=== PATIENT | female | born 1960 | race Caucasian/White ===

== ENCOUNTER 2020-03-01 08:17 | Outpatient (CLI) | payer MEDICARE, SELFPAY ==
--- NOTE | ~2020-03-01 | MM_ITS ---
EXAMINATION: MM scrn thom implant BI w derek HISTORY: Screening mammogram TECHNIQUE: Craniocaudal and mediolateral oblique 3-D tomosynthesis images with implant displacement a nd synthetic 2-D images were generated. Craniocaudal and mediolateral oblique views of the breasts wi thout implant displacement were obtained using full field digital mammography. CAD analysis was submi tted and interpreted. COMPARISON: 12/12/2018, 09/18/2017, bilateral implant digital screening mammogram examination s BREAST PARENCHYMAL COMPOSITION: There are scattered areas of fibroglandular density. FINDINGS: Status post bilateral augmentation mammoplasty. There is no evidence of suspicious mass, ca lcification, or architectural distortion to suggest malignancy in either breast. There has been no conroy spicious interval change. IMPRESSION: 1. No mammographic evidence of malignancy. 2. Recommend routine screening mammography in one year. BI-RADS Category 1: Negative Reviewed, dictated and finalized at location A.
== END 2020-03-01 08:18 | disposition home or self-care (01) ==
LOC: ANHIMG 08:19
PROVIDERS: PCP Physician Assistant; Visit Provider Physician Assistant
DX: Z12.31 Encounter for screening mammogram for malignant neoplasm of breast (principal)
CPT/HCPCS: 77063; 77067

== ENCOUNTER 2020-07-22 13:53 | Outpatient (CLI) | payer MEDICARE, SELFPAY ==
--- NOTE | ~2020-07-22 | XR_ITS ---
XR foot RT 2V DATE: 07/22/2020 15:27 INDICATION: Rheumatoid arthritis. Metatarsophalangeal pain. TECHNIQUE: Weightbearing AP and lateral views COMPARISON: None FINDINGS: There is mild osteoarthritis at the first metatarsophalangeal joint. No erosive changes are noted. No fracture, dislocation, periosteal reaction or bone destruction. Linear radiopaque foreign body overlies the soft tissues of the heel the foot. IMPRESSION: Osteoarthritis at first metatarsophalangeal joint Possible radiopaque foreign body in the soft tissues of the heel Reviewed, dictated and finalized at location B. ARY CLERK
--- NOTE | ~2020-07-22 | XR_ITS ---
XR hand BI arthritis min 3V DATE: 07/22/2020 15:27 INDICATION: Rheumatoid arthritis. The carpophalangeal pain. TECHNIQUE: 4 views of each hand COMPARISON: None FINDINGS: There is joint space narrowing and spurring at multiple joints, including the first metacar pophalangeal and multiple interphalangeal joints, particularly distal interphalangeal joints of the s econd and third digits and proximal and distal interphalangeal joints of the right fifth digit, consi stent with polyarticular osteoarthritis. No erosive changes are noted. No fracture, dislocation, periosteal reaction or bone destruction. IMPRESSION: Polyarticular osteoarthritis Reviewed, dictated and finalized at location B. RMATION SYSTEMS AUDIT MANAGER
--- NOTE | ~2020-07-22 | XR_ITS ---
XR lumbar spine min 4V DATE: 07/22/2020 15:27 INDICATION: Back pain. Rheumatoid arthritis. TECHNIQUE: AP, lateral, coned lateral lumbosacral and bilateral oblique views COMPARISON: 05/17/2016 MRI lumbar spine 11/13/2003 lumbar spine FINDINGS: There is degenerative spurring of the lower thoracic spine. There is moderately severe degenerative disc disease at L1-2. There is mild degenerative disease at L2-3. There is mild degenerative disc disease and minimal retrolisthesis at L3-4. There is minimal spurring at L4-5, with preservation of intervertebral disc space. The L5-S1 disc space is well preserved. There is minimal grade 1 anterolisthesis at L4-5 due to degenerative change at the apophyseal joints. Degenerative changes apophyseal joints is noted particularly at L4-5 and L5-S1. No fracture or bone destruction of the lumbar spine. The lumbar pedicles are intact. No spondylolysis . The sacral iliac joints are intact. IMPRESSION: Degenerative changes lower thoracic and lumbar spine Reviewed, dictated and finalized at location B. ICATION DESIGNER
--- NOTE | ~2020-07-22 | XR_ITS ---
XR foot LT 2V DATE: 07/22/2020 15:27 INDICATION: Rheumatoid arthritis TECHNIQUE: Weightbearing AP and lateral views COMPARISON: None FINDINGS: There is mild osteoarthritis at the first metatarsophalangeal joint. No fracture, dislocation, periosteal reaction or bone destruction is evident. No erosive changes are noted. IMPRESSION: Mild osteoarthritis at the first metatarsophalangeal joint Reviewed, dictated and finalized at location B. TLE BUGGY OPERATOR
--- NOTE | ~2020-07-22 | XR_ITS ---
XR hip BI 2V w AP pelvis DATE: 07/22/2020 15:27 INDICATION: Pelvic and bilateral hip pain. Rheumatoid arthritis. TECHNIQUE: AP pelvis. AP and lateral views of each hip. COMPARISON: None FINDINGS: No pelvic fracture or bone destruction is evident. The pubic sepsis and sacroiliac joints a re intact but there is mild osteitis pubis. No fracture or dislocation, avascular necrosis or bone destruction of either hip is detected. Hip nyasia nt spaces are symmetric and relatively preserved. IMPRESSION: Mild osteitis pubis Reviewed, dictated and finalized at location B. GER GAME IMPRESSION: Mild osteitis pubis
[2020-07-22 14:22] LABS: Hematocrit 34.4 % (37.0-47.0); Hemoglobin 11.4 g/dL (12.0-15.0); Mean Corpuscular HGB Conc 33.1 g/dl (32-36); Mean Corpuscular Hemoglobin 29.8 pg (26-34); Mean Corpuscular Volume 90.1 fl (80-100); Platelet Count Result 235 k/mm3 (150-375); Red Blood Count 3.82 M/mm3 (4.2-5.4); Red Cell Distribution Width 12.5 % (11.5-14.5); White Blood Count 7.7 K/mm3 (4.5-10.0)
[2020-07-22 14:37] LABS: Alanine Aminotransferase 17 U/L (4-35); Albumin Level 3.8 g/dL (3.5-5.1); Alkaline Phosphatase 61 U/L (38-126); Anion Gap 7 mmol/L (8-16); Aspartate Amino Transferase 34 U/L (14-36); Bilirubin,Total 0.4 mg/dL (0.2-1.3); Blood Urea Nitrogen 21 mg/dL (7-17); CRP 1.1 mg/dL (<1.0); Calcium 9.3 mg/dL (8.4-10.2); Carbon Dioxide 31 mmol/L (22-30); Chloride 100 mmol/L (98-107); Estimated Glomerular Filt Rate > 60; Glucose 111 mg/dL (65-105); Potassium 4.3 mmol/L (3.4-5.0); Sodium 138 mmol/L (137-145)
[2020-07-22 14:43] LABS: Add Urine Microscopic? YES; Appearance Urine Clear (Clear); Bilirubin Urine Negative (Negative); Blood Urine Negative (Negative); Color Urine Yellow (Yellow); Glucose Urine UA Negative (Negative); Ketones Urine Negative (Negative); Leukocyte Esterase Ur Negative LEU/UL (Negative); Mucus Urine Rare /lpf; Nitrate Urine Negative (Negative); Protein Urine 1+ mg/dL (Negative); Squamous Epithelial Cell Urine Rare /hpf (Few); Urobilinogen Urine Negative mg/dL (<2.0); WBC Urine 0-3 /hpf
[2020-07-22 14:50] LABS: Specific Grav Ur 1.033 (1.001-1.035)
[2020-07-22 15:32] LABS: Erythrocyte Sedimentation Rate 19 mm/hr (0-20)
== END 2020-07-22 13:54 | disposition home or self-care (01) ==
LOC: ANHLAB 13:57
PROVIDERS: PCP Physician Assistant; Visit Provider Internal Medicine
DX: M06.09 Rheumatoid arthritis without rheumatoid factor, multiple sites (principal); M19.90 Unspecified osteoarthritis, unspecified site; M19.072 Primary osteoarthritis, left ankle and foot; M19.071 Primary osteoarthritis, right ankle and foot; M86.8X8 Other osteomyelitis, other site; M19.042 Primary osteoarthritis, left hand; M19.041 Primary osteoarthritis, right hand
CPT/HCPCS: 36415; 72110; 73130; 73521; 73620; 80053; 81001; 85027; 85652; 86140

== ENCOUNTER 2021-03-03 09:34 | Outpatient (CLI) | payer MEDICARE, SELFPAY ==
--- NOTE | ~2021-03-03 | MM_ITS ---
EXAMINATION: MM scrn thom implant BI w derek HISTORY: Screening mammogram TECHNIQUE: Craniocaudal and mediolateral oblique 3-D tomosynthesis images with implant displacement a nd synthetic 2-D images were generated. Craniocaudal and mediolateral oblique views of the breasts wi thout implant displacement were obtained using full field digital mammography. CAD analysis was submi tted and interpreted. COMPARISON: 03/01/2020, 12/12/2018, 09/18/2017 BREAST PARENCHYMAL COMPOSITION: There are scattered areas of fibroglandular density. FINDINGS: There is no evidence of suspicious mass, calcification, or architectural distortion to sugg est malignancy in either breast. There has been no suspicious interval change. IMPRESSION: 1. No mammographic evidence of malignancy. 2. Recommend routine screening mammography in one year. BI-RADS Category 1: Negative Reviewed, dictated and finalized at location A.
== END 2021-03-03 09:35 | disposition home or self-care (01) ==
LOC: ANHIMG 09:35
PROVIDERS: PCP Physician Assistant; Visit Provider Physician Assistant
DX: Z12.31 Encounter for screening mammogram for malignant neoplasm of breast (principal)
CPT/HCPCS: 77063; 77067

== ENCOUNTER 2021-06-13 10:00 | Outpatient (RCR) | payer MEDICARE, SELFPAY ==
--- NOTE | 2021-05-23 16:22 | PTOPEVAL ---
Thank you for referring Yandy Callejas to [facility].? The patient is scheduled to be seen for therapy? 1-2 x/week for 6 weeks. Please review, sign, date and return this plan of care BISI. I agree with and certify that the following plan of care is medically necessary. Referring Physician Date Referring Provider: Lorrie Kiser PA-C Problem Diagnosis neck pain Onset chronic Additional Evaluation Detail She had therapy 3 yrs ago and 4 yrs ago. Subjective Information Reports she has had 4 cervical Query Text:As Reported By Patient/ fusion surgeries. Family She c/o muscle weakness. c/o left shoulder/scapular pain. She states she feels like she is trying to put something in place again. She is lifting 5# weights for UE training. She is performing stretching to help align the muscle and joints. She has popping of joints with stretching. She c/ o leg pain with steps and increased walking. She works as long as she can if her pain is lower, then won't be able to do things for days. c/o numbness and tingling of right UE. She wears a lift in her shoes due to leg length difference. She has a massager and TENS unit for managing her chronic pain. She has fibromyaglia which will cause full body pain and fatigue. Pain Assessment Neck Reported Pain Level 6 Pain Description Aching,Burning,Numbness, Radiating,Tightness,Tingling Pain Radiation Right Arm Pain Frequency Chronic,Continuous Lowest Pain Intensity 1 Greatest Pain Intensity 8 Pain Aggravating Factors Exercise/Activity Cervical and Lumbar ROM Cervical ROM Cervical Flexion (0-60) 40:Active in Degrees Cervical Extension (0-70) 60:Active in Degrees Cervical Lateral Flexion Right (0-50) 30Active in Degrees Cervical Lateral Flexion Left (0-50) 30:Active in Degrees Cervical Rotation Right (0-90) 50:Active in Degrees Cervical Rotation Left (0-90) 35:Active in Degrees Cervical ROM Comments pain with
--- NOTE | 2021-06-06 09:08 | PCPTNOTE ---
Patient did not show up for scheduled appointment this date. Called & patient stated she looked at the wrong date & had her time wrong.
--- NOTE | 2021-06-08 11:15 | PCPTNOTE ---
Patient did not show up for scheduled appointment this date. Called & spoke to patient and she stated sorry, I just forgot with the holiday coming up.
--- NOTE | 2021-06-15 10:09 | PCPTNOTE ---
Patient called & cancelled scheduled appointment this date due to not feeling well.
--- NOTE | 2021-06-20 13:48 | PCPTNOTE ---
Patient called & cancelled scheduled appointment this date due to still being sick.
--- NOTE | 2021-06-21 15:39 | PCPTNOTE ---
Pt called to cancel her remaining visits due to unable to attend therapy due to personal conflicts.
--- NOTE | 2021-06-21 15:40 | PCPTNOTE ---
Admitting Provider: Attending Provider: Lorrie Kiser PA-C Patient:Yandy Callejas Date of :1960 Physical Therapy Discharge Note Patient has not returned for any further treatments since 06/13/2021, therefore she will be discharged at this time. She called to cancel her remaining visits due to conflict in her schedule. Patient?s initial visit was on 05/23/2021 12:30 and she had a total of 4 visits with 4 missed visits. The goals have been not met due to limited visits attended. Thank you for referring this patient to [facility]. Please review, sign, date and return this discharge summary BISI. I have been updated about the patient's current status and I agree with discharge from the above service at this time. Referring Physician Date
== END 2021-06-22 17:14 | disposition home or self-care (01) ==
LOC: ANHPT 10:00
PROVIDERS: PCP Physician Assistant
DX: M54.2 Cervicalgia (principal); M54.6 Pain in thoracic spine; M54.50 Low back pain, unspecified; M96.1 Postlaminectomy syndrome, not elsewhere classified
CPT/HCPCS: 97110; 97140; 97162

== ENCOUNTER 2021-09-30 11:02 | Outpatient (CLI) | payer MEDICARE, SELFPAY ==
--- NOTE | ~2021-09-30 | XR_ITS ---
EXAMINATION: XR soft tissue neck DATE: 09/30/2021 11:32 INDICATION: Chronic dysphagia. TECHNIQUE: 2 views of the neck soft tissues were obtained. COMPARISON: None. FINDINGS: The adenoids, palatine tonsils, prevertebral soft tissues, epiglottis, and airway are forest l. There are changes of anterior fusion procedure from C3 to C7. There are changes of posterior fusio n procedure at C6-C7. IMPRESSION: 1. Normal neck soft tissues. Reviewed, dictated and finalized at location A.
--- NOTE | ~2021-09-30 | XR_ITS ---
EXAMINATION: XR chest 2V DATE: 09/30/2021 11:32 INDICATION: Chronic cough. Chronic dysphagia. TECHNIQUE: Frontal and lateral views of the chest were obtained. COMPARISON: Chest 2 views 04/26/2018 FINDINGS: There is mild scarring at right lung apex. A calcified left lung nodule and calcified left hilar and mediastinal lymph nodes are consistent with old granulomatous disease. There is chronic adri nting of left posterior costophrenic angle, likely scarring. No pleural effusion or pneumothorax. The heart size is normal. Breast implants are noted. There are changes of anterior fusion procedure in c ervical spine. IMPRESSION: 1. Mild scarring at right lung apex and left lung base. Reviewed, dictated and finalized at location A.
== END 2021-09-30 11:03 | disposition home or self-care (01) ==
LOC: ANHIMG 11:08
PROVIDERS: PCP Physician Assistant; Visit Provider Physician Assistant
DX: R13.11 Dysphagia, oral phase (principal); R05.3 Chronic cough
CPT/HCPCS: 70360; 71046

== ENCOUNTER 2021-11-20 16:09 | Emergency (ER) | payer MEDICARE, SELFPAY | END 2021-11-20 17:20 | disposition left against medical advice (07) | PROVIDERS: Emergency Provider Family Medicine; PCP Physician Assistant | DX: R52 Pain, unspecified (principal) | CPT/HCPCS: 99199 ==

== ENCOUNTER 2022-01-25 10:19 | Day surgery (SDC) | payer MEDICARE, SELFPAY ==
[2022-01-12 13:06] VITALS: BMI 21.7
--- NOTE | 2022-01-24 12:01 | PM.HPGS ---
History of Present Illness History of Present Illness Consent: Risks, benefits, and alternatives have been discussed and questions answered. Patient agrees to proceed with procedure. Chief complaint: dysphagia and neoplasm screening Narrative: Yandy Callejas is a 61 year old female ? whostates that every time she eats she will choke.? It at times makes it feel like she cannot breathe.? She states she had a swallow test that was normal a couple of years ago.? She is taking famotidine once a day and finds that it is somewhat helpful.? She was not aware of the fact that she had acid reflux but agrees that this medication has been of some benefit.? Unfortunately, even coming in to my office she states she had some hard candy and it caused her to cough.? She has had extensive surgery on her neck, she has had? cervical fusion 4 times and is fused from C2-C7.? She thinks that the symptoms actually? began before her 1st operation after which the neuro surgeon told her that there had been a spur that may have been impinging on her esophagus.? ? Her weight is stable.? Two years ago barium esophagogram was unremarkable . She is also referred for colon cancer screening. Review of Systems Review of Systems: All systems reviewed & are unremarkable except as noted in HPI and below PMFSH Past Medical History Medical History Arthritis Bilateral hand pain Cervical spine arthritis with nerve pain (~10/2018) Degenerative joint disease of cervical and lumbar spine (~1998) Rheumatoid arthritis involving both hands with negative rheumatoid factor (10/14/16) Steel plate in left arm Surgical History Surgical History H/O cervical spine surgery History of carpal tunnel release Family History Family History Other Family history of arthritis Social History Social History Smoking status: Never smoker Alcohol intake: current Living arrangements: with family Spiritual care concerns: No Meds Home Medications and Allergies Home Medications Medication Instructions Recorded Confirmed Type hydrocodone 10 mg-acetaminophen 1 tablet PO BID PRN Back Pain 05/16/19 01/25/22 History 325 mg tablet levothyroxine 25 mcg capsule 25 mcg PO DAILY 07/28/20 01/25/22 History amitriptyline 25 mg tablet 25 mg PO DAILY #90 tabs 08/09/21 01/25/22 Rx hydroxychloroquine 200 mg tablet 300 mg PO DAILY #135 tabs 08/09/21 01/25/22 Rx (Plaquenil) tizanidine 2 mg tablet 2 mg PO TID PRN muscle spasticity 08/09/21 01/25/22 Rx #90 tabs diclofenac sodium 1 % topical gel 2 g topical QID PRN joint pain 01/12/22 01/25/22 History famotidine 20 mg tablet 20 tablet PO DAILY 01/12/22 01/25/22 History Allergies Allergy/AdvReac Type Severity Reaction Status Date / Time NSAIDS (Non-Steroidal Allergy Unknown Rash Verified 01/25/22 10:47 Anti-Inflamma Exam Const: General: alert Orientation/consciousness: patient oriented x3 Resp: Auscultation: clear to auscultation bilaterally Cardio: Rhythm: regular rhythm GI: GI Palp: Yes Soft to palpation and No Tenderness to palpation present (GI) Neuro: General: patient oriented x3 Assessment and Plan Assessment and plan (1) Dysphagia: Code(s): R13.10 - Dysphagia, unspecified Status: Acute Assessment and Plan: EGD with possible biopsy or dilatation or cautery. (2) Colon cancer screening: Code(s): Z12.11 - Encounter for screening for malignant neoplasm of colon Status: Acute Assessment and Plan: Colonoscopy with possible biopsy or polypectomy or cautery or injection of substances.
--- NOTE | 2022-01-24 13:25 | P.PNAN_ITS ---
Anes - Initial Pre Proc Eval Procedure: Operation Date: 01/25/22 12:00 Proposed Procedures p Esophagogastroduodenoscopy - Prakash Jewell MD s Screening Colonoscopy - Prakash Jewell MD Date/Time: 01/24/22 13:25 Surgeon: Prakash Jewell MD Pre Op Diagnosis: dysphagia and neoplasm screening Patient Data Age: 61 Gender: F Height: 1.66 m Weight: 60 kg Allergies Allergy/AdvReac Type Severity Reaction Status Date / Time NSAIDS (Non-Steroidal Allergy Unknown Rash Verified 01/25/22 10:47 Anti-Inflamma Home Medications Medication Instructions Recorded Confirmed Type hydrocodone 10 mg-acetaminophen 1 tablet PO BID PRN Back Pain 05/16/19 01/25/22 History 325 mg tablet levothyroxine 25 mcg capsule 25 mcg PO DAILY 07/28/20 01/25/22 History amitriptyline 25 mg tablet 25 mg PO DAILY #90 tabs 08/09/21 01/25/22 Rx hydroxychloroquine 200 mg tablet 300 mg PO DAILY #135 tabs 08/09/21 01/25/22 Rx (Plaquenil) tizanidine 2 mg tablet 2 mg PO TID PRN muscle spasticity 08/09/21 01/25/22 Rx #90 tabs diclofenac sodium 1 % topical gel 2 g topical QID PRN joint pain 01/12/22 01/25/22 History famotidine 20 mg tablet 20 tablet PO DAILY 01/12/22 01/25/22 History Patient hx anesthesia problems: none Family hx anesthesia problems: none Results Review: All pre-operative results and documents have been reviewed as part of the pre- operative evaluation. [facility] [place] Past Medical History Medical History Arthritis Bilateral hand pain Cervical spine arthritis with nerve pain (~10/2018) Degenerative joint disease of cervical and lumbar spine (~1998) Rheumatoid arthritis involving both hands with negative rheumatoid factor (10/14/16) Steel plate in left arm Surgical History Surgical History H/O cervical spine surgery History of carpal tunnel release Family History Family History (System 12/15/21 @ 16:19 by Bree Lopez) Other Family history of arthritis Social History Social History (System 12/15/21 @ 16:19 by Bree Lopez) Smoking status: Never smoker Alcohol intake: current Living arrangements: with family Spiritual care concerns: No Anes - Eval Final PreProcedure Day of Procedure 01/24/22 13:25 Patient weight: normal Heart: regular rate and rhythm Lungs: clear to auscultation Airway: Mallampati scale class II Neurological: alert and oriented Last oral intake: >/= 8 hours ASA classification: II Emergent: no Anesthetic plan: proceed Anesthesia type and monitoring: general GIVS and standard monitoring Results Review: All pre-operative results and documents have been reviewed as part of the pre- operative evaluation. Informed Consent: The patient's anesthetic plan and its attendant risks and benefits were discussed with the patient/family/POA. Questions were solicited and answers provided to the satisfaction of the patient/family/POA.
[2022-01-25 10:52] VITALS: BP 101/82; PULSE 104; RESP 18; TEMP 37.4; O2SAT 99; BMI 21.4
[2022-01-25] MEDS: LACTATED RINGERS 1,000 ML 30 ML IV CONT (11:10)
--- NOTE | 2022-01-25 12:23 | SUR.OPER ---
Balloon dilation done 18-20 to esophagus
[2022-01-25 12:29] VITALS: BP 87/66; PULSE 96; RESP 20; TEMP 37.2; O2SAT 100
[2022-01-25 12:39] VITALS: BP 94/76; PULSE 94; RESP 20; O2SAT 100
[2022-01-25 12:49] VITALS: BP 98/68; PULSE 95; RESP 20; O2SAT 100
--- NOTE | 2022-02-15 07:41 | WPDANESPN ---
Anes - Prog Note Post-Op Date/Time: 01/25/22 14:00 Cardiovascular status: normal Respiratory status: normal Airway patency: baseline Mental status: baseline Post-Op hydration status: normal Vital Signs: Last Vital Signs Temp 37.2 C 01/25/22 12:29 Pulse 95 01/25/22 12:49 Resp 20 01/25/22 12:49 BP 98/68 L 01/25/22 12:49 Pulse Ox 100 01/25/22 12:49 O2 Del Method Room Air 01/25/22 12:49 Pain Score (VAS): 0 Post-procedural complaints: none Patient Feedback: Patient satisfied with anesthetic care. Other Findings: Patient vital signs back to baseline. Patient denies nausea and vomiting. Patient's pain under control. Patient OK for discharge.
== END 2022-01-25 12:58 | disposition home or self-care (01) ==
PROVIDERS: PCP Physician Assistant; Visit Provider Internal Medicine Gastroenterology
PROC: 0DP08DZ Removal of Intraluminal Device from Upper Intestinal Tract, Via Natural or Artificial Opening Endoscopic (ICD-10-PCS; CPT 43247; principal; 2022-01-25 12:00)
PROC: 0DJD8ZZ Inspection of Lower Intestinal Tract, Via Natural or Artificial Opening Endoscopic (ICD-10-PCS; CPT 45378; 2022-01-25 12:00)
DX: R13.10 Dysphagia, unspecified (principal); Z12.11 Encounter for screening for malignant neoplasm of colon
CPT/HCPCS: 45378; 43249; 43239

== ENCOUNTER 2022-04-11 14:37 | Outpatient (CLI) | payer MEDICARE, MEDICAID, SELFPAY ==
--- NOTE | ~2022-04-11 | MM_ITS ---
EXAMINATION: MM scrn thom implant BI w derek HISTORY: Screening mammogram TECHNIQUE: Craniocaudal and mediolateral oblique 3-D tomosynthesis images with implant displacement a nd synthetic 2-D images were generated. Craniocaudal and mediolateral oblique views of the breasts wi thout implant displacement were obtained using full field digital mammography. CAD analysis was submi tted and interpreted. COMPARISON: 03/03/2021, 03/01/2020, 12/12/2018 bilateral implant screening mammogram examinations BREAST PARENCHYMAL COMPOSITION: The breasts are heterogeneously dense, which may obscure small masses . FINDINGS: Status post bilateral augmentation mammoplasty. There is no evidence of suspicious mass, ca lcification, or architectural distortion to suggest malignancy in either breast. There has been no conroy spicious interval change. IMPRESSION: 1. No mammographic evidence of malignancy. 2. Recommend routine screening mammography in one year. BI-RADS Category 1: Negative Reviewed, dictated and finalized at location A.
== END 2022-04-11 14:38 | disposition home or self-care (01) ==
PROVIDERS: PCP Physician Assistant; Visit Provider Physician Assistant
DX: Z12.31 Encounter for screening mammogram for malignant neoplasm of breast (principal)
CPT/HCPCS: 77063; 77067

== ENCOUNTER 2023-02-06 09:51 | Outpatient (CLI) | payer MEDICARE, MEDICAID, SELFPAY ==
--- NOTE | ~2023-02-06 | DEXA_ITS ---
Bone Density Report Name: DANAE CRUMP Age: 62 Sex: Female Ethnicity: White Date of : 1960 Indication: postmenopausal; screening for osteoporosis; hysterectomy; rheumatoid arthritis; Referring Provider: HARIS, LORRIE Thomson Study: Bone densitometry was performed. Exam Date: February 06, 2023 Accession number: [id number] Bone Density: Region BMD T-score Z-score Classification AP Spine(L1, L2) 1.024 0.4 1.9 Normal Femoral Neck (Left) 0.519 -3.0 -1.6 Osteoporosis Total Hip (Left) 0.668 -2.2 -1.2 Osteopenia Femoral Neck (Right) 0.553 -2.7 -1.3 Osteoporosis Total Hip (Right) 0.687 -2.1 -1.0 Osteopenia Total Hip Mean 0.678 -2.2 -1.1 Osteopenia World Health Organization criteria for BMD impression classify patients as: Normal (T-score at or above -1.0), Osteopenia (T-score between -1.0 and -2.5), or Osteoporosis (T-score at or below -2.5). 10-year Fracture Risk: FRAX not reported because: Some T-score for Spine Total or Hip Total or Femoral Neck at or below -2.5 Clinical Information Provided by Patient: Has rheumatoid arthritis Has used the following medications: Vitamin D, Calcium Has the following medical conditions: Hysterectomy Patient maximum height was 65.5 Menopause Age: 24 Drinks caffeinated beverages Onset of menses at age 12 Number of children 1 Impression: The patient has osteoporosis, based on the Left Femoral Neck T-score. Discussion: INCREASED RISK OF FRACTURE. BONE DENSITY IS UNDESIRABLY LOW AT ONE OR MORE SKELETAL SITES, CONSISTENT WITH POSTMENOPAUSAL OSTEOPOROSIS. This patient's lowest T-score meets the World Health Organization's (WHO) criteria for osteoporosis at one or more sites (T-score -2.5 or below). In untreated patients, the risk of osteoporotic fracture increases approximately two-fold for each 1.0 SD decrease in T-score. Low bone density is not the only risk factor for fracture; also consider factors such as patient's age, frailty or poor health, risk of falling, risk of injury, previous osteoporotic fracture, family history of osteoporosis, cigarette smoking, low body weight, etc. Not everyone with low bone mineral density has osteoporosis; osteomalacia and other metabolic bone disorders should also be considered. Patients who have osteoporosis should be evaluated for specific diseases and conditions (secondary causes) that may cause or contribute to bone loss. The [place] [employer] Endocrinologists (AACE) and National Osteoporosis Foundation (NOF) recommend pharmacologic intervention for all postmenopausal women whose T-score is in this range. The patient should follow a healthful lifestyle (good nutrition with adequate calcium and vitamin D, and appropriate weight-bearing exercise). Follow-Up: Consider a repeat BMD and Vertebral Fracture Asses
== END 2023-02-06 09:52 | disposition home or self-care (01) ==
PROVIDERS: PCP Physician Assistant; Visit Provider Physician Assistant
DX: Z13.820 Encounter for screening for osteoporosis (principal); M81.0 Age-related osteoporosis without current pathological fracture; Z78.0 Asymptomatic menopausal state
CPT/HCPCS: 77080

== ENCOUNTER 2023-08-01 09:00 | Outpatient (CLI) | payer MEDICARE, MEDICAID, SELFPAY ==
--- NOTE | ~2023-08-01 | MM_ITS ---
EXAMINATION: MM scrn tohm implant BI w derek HISTORY: Screening mammogram TECHNIQUE: Craniocaudal and mediolateral oblique 3-D tomosynthesis images with implant displacement a nd synthetic 2-D images were generated. Craniocaudal and mediolateral oblique views of the breasts wi thout implant displacement were obtained using full field digital mammography. CAD analysis was submi tted and interpreted. COMPARISON: Comparison to multiple prior studies sequentially, with oldest reviewed study dated 08/28. BREAST PARENCHYMAL COMPOSITION: There are scattered areas of fibroglandular density. FINDINGS: There is no evidence of suspicious mass, calcification, or architectural distortion to sugg est malignancy in either breast. There has been no suspicious interval change. IMPRESSION: 1. No mammographic evidence of malignancy. 2. Recommend routine screening mammography in one year. BI-RADS Category 1: Negative Reviewed, dictated and finalized at location A. OPERATIONS MANAGER
== END 2023-08-01 09:01 | disposition home or self-care (01) ==
LOC: ANHIMG 09:02
PROVIDERS: PCP Physician Assistant; Visit Provider Physician Assistant
DX: Z12.31 Encounter for screening mammogram for malignant neoplasm of breast (principal)
CPT/HCPCS: 77063; 77067

== ENCOUNTER 2024-09-29 08:52 | Outpatient (CLI) | payer MEDICARE, MEDICAID, SELFPAY ==
--- NOTE | ~2024-09-29 | MM_ITS ---
EXAMINATION: MM scrn thom implant BI w derek HISTORY: Screening mammogram TECHNIQUE: Craniocaudal and mediolateral oblique 3-D tomosynthesis images with implant displacement a nd synthetic 2-D images were generated. Craniocaudal and mediolateral oblique views of the breasts wi thout implant displacement were obtained using full field digital mammography. CAD analysis was submi tted and interpreted. COMPARISON: Comparison to multiple prior studies sequentially, with oldest reviewed study dated 12/2017. BREAST PARENCHYMAL COMPOSITION: Not dense: There are scattered areas of fibroglandular density. FINDINGS: There is no evidence of suspicious mass, calcification, or architectural distortion to sugg est malignancy in either breast. There has been no suspicious interval change. IMPRESSION: 1. No mammographic evidence of malignancy. 2. Recommend routine screening mammography in one year. BI-RADS Category 1: Negative Reviewed, dictated and finalized at location B.
--- OUTSIDE RECORDS SUMMARY | 2024-09-29 09:35 | XMS_ITS | Continuity of Care Document ---
Author Organization [facility] Address [address] [place] [address] [address] [place] [address] Phone Care Team Providers Care Air Filler Name Role Phone Munoz OD, Javier Unavailable Unavailable Procedures Procedure Date Eye Exam, New Patient Advance Directives Directive Yes / No Effective Date File Name No Information Encounters Encounter Description Practice Location Reason(s) For Visit Diagnoses Date Provider Providers Copied on Encounter Located within [facility], [address], [place], [place], [id number], [place] tel:[phone] SEC [facility] No Information 1-200 9 Munoz OD Ajvier. [address] [facility] , [address], [place], [address], [place]. tel:[phone] Family History Family Member Type Diagnosis Age At Onset No Information Payers Payer name Insurance type Covered green party ID Authoriza tion(s) No Information Social History Type Description Quantity Date Captured Comments Sex Female Smoking Status No Information Chief Complaint And Reason For Visit No Information Reason For Referral Reason For Referral No Information History Of Present Illness Encounter Date Complaint History Of Prese nt Illness No Information Functional Status Date Functional Assessmen t No Information Instructions Date Instruction Additional Infor mation No Information Assessments Type Assessment Date No Information Patient Care Teams Name Effective Dates (start - stop) Status Members No Information
--- OUTSIDE RECORDS SUMMARY | 2024-09-29 09:35 | XMS_ITS | Clinical Summary ---
Author Organization [facility] [address] Address [address] [place] [address] Care Team Providers Care Crystallographer Name Role Phone Ted Moon DO Primary Care Provider [phone] Allergies Active Allergy Reactions Criticality Noted Date Comments Naproxen Hives Reaction: HIVES Social History Tobacco Use Types Packs/Day Years Used Date Smoking Tobacco: Never Assessed Personal Safety Answer Date Recorded Getting School Help Needed Not on file 09/28 Comments Unknown Sex and Gender Information Value Date Recorded Sex Assigned at Not on file Legal Sex Female 1:11 PM SMOKING PIPE DRILLER AND THREADER Gender Identity Not on file Sexual Orientation Not on file Last Filed Vital Signs Vital Sign Reading Time Taken Comments Blood Pressure 100/54 04/14/2014 9:02 AM CDT Pulse 68 04/14/2014 9:02 AM CDT Temperature - - Respiratory Rate - - Oxygen Saturation - - Inhaled Oxygen Concentration - - Weight 64 kg (141 lb) 04/13/2014 11:00 AM CDT Height 167.6 cm (5' 5.98 ) 04/13/2014 11:00 AM C DT Body Mass Index 22.77 04/13/2014 11:00 AM CDT Plan of Treatment Not on file Insurance MEDICARE SOLUTIONS MEDICARE SOLUTIONS [id number] [id number] Care Teams Crystallographer Relationship Specialty Start Date End Date Ted Moon DO PCP - General Internal Medicine 12/25/16
--- OUTSIDE RECORDS SUMMARY | 2024-09-29 09:35 | XMS_ITS | Clinical Summary ---
Author Organization [facility] [employer] Address [address] [place] [address] Care Team Providers Care Wafer Abrading Machine Tender Name Role Phone Unavailable Primary Care Provider Unavailabl e Source Comments [facility] [employer],non-owned Affiliates and Associated Physician Practices is amultiple site organization consisting of ambulatory clinics and hospital sitesin [place], [place], [place] and [place]. This disclosure is being madepursuant to the Care Everywhere program and may not contain all information available regarding this patient. Last updated 18.[facility] [employer] Social History Tobacco Use Types Packs/Day Years Used Date Smoking Tobacco: Never Assessed Sex and Gender Information Value Date Recorded Sex Assigned at Not on file Gender Identity Not on file Sexual Orientation Not on file Plan of Treatment Health Maintenance Due Date Last Done Comments COLOGUARD (AGES 45-75) - COL ON CA SCREENING 1960 COLON MONITORING 1960 COLONOSCOPY - COLON CA SCREENING 1960 CT COLONOGRAPHY - COLON CA SCREENING 1960 Colorectal Cancer Screening 1960 FIT - COLON CA SCREENING 1960 FLEX SIG - COLON CA SCREENING 1960 LIPID TESTING 1960 MAMMOGRAM 1960 PAP SMEAR 1960 HIV SCREENING 10/30/1975 HEPATITIS C SCREENING 10/25/1978 DTAP/TDAP/TD VACCINES (1 - Tdap) 10/30/1979 PNEUMOCOCCAL VACCINE 50+ (1 of 1 - PCV) 2010 ZOSTER VACCINE (1 of 2) 2010 COVID-19 VACCINE (1 - 2023-2 5 season) 2024 INFLUENZA VACCINE (#1) 2024 DEPRESSION SCREENING 07/16/2024 Respiratory Syncytial Virus (RSV) Vaccine Pt: or over 60 yrs (1 - 1-dose 75+ series) 10/30/2035 HEPATITIS B VACCINE Aged Out No longe r eligible based on patient's age to complete this topic HIB VACCINE Aged Out No longer eligi ble based on patient's age to complete this topic HPV VACCINE Aged Out No longer eligi ble based on patient's age to complete this topic MENINGOCOCCAL (Group B) VACC INE SHARED DECISION-MAKING Aged Out No longer eligibl e based on patient's age to complete this topic MENINGOCOCCAL GROUPS A/C/Y/W VACCINE Aged Out No longer eligible b ased on patient's age to complete this topic PNEUMOCOCCAL VACCINE Aged Out No long er eligible based on patient's age to complete this topic
--- OUTSIDE RECORDS SUMMARY | 2024-09-29 09:35 | XMS_ITS | Encounter Summary ---
Author Organization [facility] Address [facility] [place] [address] Care Team Providers Care Handhole Machine Operator Name Role Phone Debra Minor Primary Care Provider [phone] Segundo Kennedy MD Unavailable [phone] [facility] Primary Care Provider + Encounter Details Date Type Department Care Team (Late st Contact Info) Description 03/24/2021 Pressflip Message Enc [facility] Medical Group Family & Internal Medicine [address] [address] [facility] Medication & lab work Social History Tobacco Use Types Packs/Day Years Used Date Smoking Tobacco: Former Cigarettes Smokeless Tobacco: Never Comments:Quit 11 years ago Alcohol Use Standard Drinks/Week Comments Never 0 (1 standard drink = 0.6 oz pur e alcohol) AUDIT-C Answer Date Recorded Q1: How often do you have a drink containing alc ohol? Never 01/13/2020 Average Number of Drinks Not on file 020 Frequency of Binge Drinking Not on file 12/16 PHQ-2 Answer Date Recorded PHQ-2 Score - If the patient scores above 3, please move on to questions 3-9 0 01/19/2021 Comments No Sex and Gender Information Value Date Recorded Sex Assigned at Not on file Legal Sex Female 1:05 PM CDT Gender Identity Female 08/15/2021 4:38 AM JIG MAKER Sexual Orientation Straight 08/30/2021 7: 32 AM JIG MAKER documented as of this encounter Plan of Treatment Upcoming Encounters Date Type Department Care Team (Late st Contact Info) Description 09/30/2024 9:30 AM CDT Appointment [facility] One Day Services [address] [place] [address] Danitza Gutierrez FNP-BC [address], [address] [place] [address] documented as of this encounter Visit Diagnoses Not on filedocumented in this encounter Additional Health Concerns Assessment Noted Time PHQ-9 Depression Total Score: 0 01/20/20 9:06 AM CDT documented as of this encounter Care Teams Handhole Machine Operator Relationship Specialty [place] [address] [place] [address] PCP - General PHYSICIAN SCRAP DEALER 01/13/20 04/19/23 Danitza Gutierrez FNP-BC [address], [address] [place] [address] PCP - General Nurse Practitioner Family 04/20/23 [place] [address] [address] , [address] [id number] ANESTHESIOLOGY 10/03/21 documented as of this encounter
--- OUTSIDE RECORDS SUMMARY | 2024-09-29 09:35 | XMS_ITS | Encounter Summary ---
Author Organization [facility] Address [facility] [place] [address] Care Team Providers Care Electroneurodiagnostic Technologist Name Role Phone Segundo Kennedy MD Unavailable [phone] Danitza Gutierrez [facility] Primary Care Provider + Encounter Details Date Type Department Care Team (Late st Contact Info) Description 05/12/2024 [employer] Message [employer] [facility] Medical Group Internal Medicine [address] [address] [facility] Provider Colorectal cancer screening Social History Tobacco Use Types Packs/Day Years Used Date Smoking Tobacco: Former Cigarettes 0.5 20 1 - 2009 Passive Smoke Exposure: Past Smokeless Tobacco: Never Alcohol Use Standard Drinks/Week Comments Yes 0 (1 standard drink = 0.6 oz pur e alcohol) rare AUDIT-C Answer Date Recorded Q1: How often do you have a drink containing alc ohol? Never 01/13/2020 Average Number of Drinks Not on file 020 Frequency of Binge Drinking Not on file 12/16 PHQ-2 Answer Date Recorded Patient Health Questionnaire-2 Score 0 01/14/2024 Comments No Sex and Gender Information Value Date Recorded Sex Assigned at Not on file Legal Sex Female 1:05 PM CDT Gender Identity Female 08/15/2021 4:38 AM PREMIUM NOTE INTEREST CALCULATOR CLERK Sexual Orientation Straight 08/30/2021 7: 32 AM PREMIUM NOTE INTEREST CALCULATOR CLERK documented as of this encounter Plan of Treatment Upcoming Encounters Date Type Department Care Team (Late st Contact Info) Description 09/30/2024 9:30 AM CDT Appointment [facility] [address] [place] [address] Danitza Gutierrez FNP- [address], [address] [place] [address] documented as of this encounter Visit Diagnoses Not on filedocumented in this encounter Additional Health Concerns Assessment Noted Time PHQ-9 Depression Total Score: 0 10/04/19 22 3:55 PM CDT documented as of this encounter Care Teams Electroneurodiagnostic Technologist Relationship Specialty Start Date End Date Danitza Gutierrez FNP-MAREN [address], [address] [place] [address] PCP - General Nurse Practitioner Family 04/20/23 [place] [address] [address] , [address] [address] ANESTHESIOLOGY 10/03/21 documented as of this encounter
--- OUTSIDE RECORDS SUMMARY | 2024-09-29 09:35 | XMS_ITS | Encounter Summary ---
Author Organization [facility] Address [facility] [place] [address] Care Team Providers Care Nut Tapper Name Role Phone Debra Minor Primary Care Provider [phone] Segundo Kennedy MD Unavailable [phone] Danitza Gutierrez [facility] Primary Care Provider + Encounter Details Date Type Department Care Team (Late st Contact Info) Description 04/18/2022 [employer] Message Enc [facility] Medical Group Family & Internal Medicine [address] [address] Gutierrez [facility] Provider Mammogram result Social History Tobacco Use Types Packs/Day Years Used Date Smoking Tobacco: Former Cigarettes Smokeless Tobacco: Never Comments:Quit 11 years ago Alcohol Use Standard Drinks/Week Comments Never 0 (1 standard drink = 0.6 oz pur e alcohol) non smoker AUDIT-C Answer Date Recorded Q1: How often do you have a drink containing alc ohol? Never 01/13/2020 Average Number of Drinks Not on file 020 Frequency of Binge Drinking Not on file 12/16 PHQ-2 Answer Date Recorded PHQ-2 Score - If the patient scores above 3, please move on to questions 3-9 0 01/03/2022 Comments No Sex and Gender Information Value Date Recorded Sex Assigned at Not on file Legal Sex Female 1:05 PM CDT Gender Identity Female 08/15/2021 4:38 AM LAB SCIENTIST Sexual Orientation Straight 08/30/2021 7: 32 AM LAB SCIENTIST documented as of this encounter Plan of Treatment Upcoming Encounters Date Type Department Care Team (Late st Contact Info) Description 09/30/2024 9:30 AM CDT Appointment [facility] One Day Services [address] [place] [address] Danitza Gutierrez FNP-BC [address] [address], [address] [place] [address] documented as of this encounter Visit Diagnoses Not on filedocumented in this encounter Additional Health Concerns Assessment Noted Time PHQ-9 Depression Total Score: 0 10/04/19 3:55 PM CDT documented as of this encounter Care Teams Nut Tapper Relationship Specialty [place] [address] [place] [address] PCP - General PHYSICIAN INSPECTOR METAL FABRICATING 01/13/20 04/19/23 Danitza Gutierrez FNP-BC [address], [address] [place] [address] PCP - General Nurse Practitioner Family 04/20/23 [place] [address] [address] , [address] [phone] ANESTHESIOLOGY 10/03/21 documented as of this encounter
--- OUTSIDE RECORDS SUMMARY | 2024-09-29 09:35 | XMS_ITS | Encounter Summary ---
Author Organization [facility] Address [facility] [place] [address] Care Team Providers Care Glass Technologist Name Role Phone Segundo Kennedy MD Unavailable [phone] Danitza Gutierrez [facility] Primary Care Provider + Encounter Details Date Type Department Care Team (Late st Contact Info) Description 09/04/2023 Therapy Plan [facility] Medical Group Family & Internal Medicine [address] [address] Danitza Gutierrez [facility] [address] [place] [address] [address] [place] [address] Social History Tobacco Use Types Packs/Day Years Used Date Smoking Tobacco: Former Cigarettes 0.5 20 1 0 - 2009 Passive Smoke Exposure: Past Smokeless Tobacco: Never Alcohol Use Standard Drinks/Week Comments Never 0 (1 standard drink = 0.6 oz pur e alcohol) non smoker AUDIT-C Answer Date Recorded Q1: How often do you have a drink containing alc ohol? Never 01/13/2020 Average Number of Drinks Not on file 020 Frequency of Binge Drinking Not on file 12/16 PHQ-2 Answer Date Recorded Patient Health Questionnaire-2 Score 0 04/20/2023 Comments No Sex and Gender Information Value Date Recorded Sex Assigned at Not on file Legal Sex Female 1:05 PM CDT Gender Identity Female 08/15/2021 4:38 AM CROP SPECIALIST Sexual Orientation Straight 08/30/2021 7: 32 AM CROP SPECIALIST documented as of this encounter Plan of Treatment Upcoming Encounters Date Type Department Care Team (Late st Contact Info) Description 09/30/2024 9:30 AM CDT Appointment [facility] One Day Services [address] [place] [address] Danitza Gutierrez FNP-BC [address], [address] [place] [address] documented as of this encounter Visit Diagnoses Diagnosis Age-related osteoporosis without current pathological fracture- Primary Senile osteoporosis documented in this encounter Additional Health Concerns Assessment Noted Time PHQ-9 Depression Total Score: 0 10/04/19 22 3:55 PM CDT documented as of this encounter Care Teams Glass Technologist Relationship Specialty Start Date End Date Danitza Gutierrez FNP-BC [address], [address] [place] [address] PCP - General Nurse Practitioner Family 04/20/23 [place] [address] [address] , [address] [address] ANESTHESIOLOGY 10/03/21 documented as of this encounter
--- OUTSIDE RECORDS SUMMARY | 2024-09-29 09:35 | XMS_ITS | Referral Summary ---
Author Organization [facility] [address] Address [address] [place] [address] Care Team Providers Care Ground Host/Hostess Name Role Phone Ted Moon DO Primary Care Provider [phone] Allergies Active Allergy Reactions Criticality Noted Date Comments Naproxen Hives Reaction: HIVES Social History Tobacco Use Types Packs/Day Years Used Date Smoking Tobacco: Never Assessed Personal Safety Answer Date Recorded Getting School Help Needed Not on file 09/28 Comments Unknown Sex and Gender Information Value Date Recorded Sex Assigned at Not on file Legal Sex Female 1:11 PM GILL BOX TENDER Gender Identity Not on file Sexual Orientation [...] on file Insurance MEDICARE SOLUTIONS MEDICARE SOLUTIONS [id number] [id number] Care Teams Ground Host/Hostess Relationship Specialty Start Date End Date Ted Moon DO PCP - General Internal Medicine 12/25/16
--- OUTSIDE RECORDS SUMMARY | 2024-09-29 09:35 | XMS_ITS | Encounter Summary ---
Author Organization [facility] Address [facility] [place] [address] Care Team Providers Care Orthodontist Assistant Name Role Phone Segundo Kennedy MD Unavailable [phone] Danitza Gutierrez [facility] Primary Care Provider + Encounter Details Date Type Department Care Team (Late st Contact Info) Description 04/24/2023 Therapy Plan [facility] Medical Group Family & Internal Medicine [address] [address] Danitza Gutierrez [facility] [address] [place] [address] [address] [place] [address] Social History Tobacco Use Types [...] CDT Gender Identity Female 08/15/2021 4:38 AM ELECTRONIC SCIENCE TEACHER Sexual Orientation Straight 08/30/2021 7: 32 AM ELECTRONIC SCIENCE TEACHER documented as of this encounter Plan of Treatment Upcoming Encounters Date Type Department Care Team (Late st Contact Info) Description 09/30/2024 9:30 AM CDT Appointment [facility] One Day Services [address] [place] [address] Danitza Gutierrez FNP-BC [address] [address], [address] [place] [address] documented as of this encounter Visit Diagnoses Not on filedocumented in this encounter Additional Health Concerns Assessment Noted Time PHQ-9 Depression Total Score: 0 10/04/19 3:55 PM CDT documented as of this encounter Care Teams Orthodontist Assistant Relationship Specialty Start Date End Date Danitza Gutierrez FNP-BC [address] [address], [address] [place] [address] PCP - General Nurse Practitioner Family 04/20/23 [place] [address] [address], [address] [phone] ANESTHESIOLOGY 10/03/21 documented as of this encounter
--- OUTSIDE RECORDS SUMMARY | 2024-09-29 09:35 | XMS_ITS | Clinical Summary ---
Author Organization [facility] Address [address] [place] [address] Care Team Providers Care Remote Sensing Specialist Name Role Phone Segundo Kennedy MD Unavailable [phone] Danitza Gutierrez [facility] Primary Care Provider + Allergies Active Allergy Reactions Criticality Noted Date Comments Naproxen Hives 01/19/2021 Reaction: HIVES Nsaids Hives Low 01/13/2020 Medications HYDROcodone-acet aminophen 10-325 MG tablet 0 Active diclofenac sodium 1 % gel APPLY 2 GRAMS TOPICALLY TO THE AFFECTED AREA FOUR TIMES DAILY 2 Active multi vitamin/minerals tablet Take 1 tablet by mouth daily. Active vitamin D3, cholecalciferol, 10 MCG (400 UNIT) tablet Take 1 tablet (400 Units total) by mouth daily. Active fluticasone propionate (FLONASE) 50 MCG/ACT nasal spray 1 spray by Each Nostril route 2 (two) times daily. 3 Active loratadine (CLARITIN) 10 MG tablet Take 1 tablet (10 mg total) by mouth daily. 3 Active calcium carb-cholecalcif lizzy (CALTRATE 600+D) 600-20 MG-MCG tablet Take 1 tablet by mouth daily. Active DULoxetine (CYMBALTA) 20 MG capsuleIndicatio ns:Chronic neck pain Take 1 capsule (20 mg total) by mouth daily. 30 capsule 3 Active amitriptyline (ELAVIL) 50 MG tabletIndication s:Insomnia, unspecified type TAKE 1 TABLET(50 MG) BY MOUTH EVERY NIGHT AT BEDTIME 90 tablet 1 4 Active hydroxychloroqui ne (PLAQUENIL) 200 MG tablet Take 1 tablet (200 mg total) by mouth daily. 4 Active methylPREDNISolo ne, YESICA, (MEDROL DOSEPAK) 4 MG tabletIndication s:Chronic right shoulder pain 6 TABLETS ON DAY ONE, 5 TABLETS DAY TWO, 4 TABLETS DAY THREE, 3 TABLETS DAY FOUR, 2 TABLETS DAY FIVE, AND 1 TABLET DAY SIX 1 each 4 Active Additional Information Patient not taking.Reported on 10/25/2023 meloxicam (MOBIC) 15 MG tablet TAKE 1 TABLET BY MOUTH EVERY MORNING NEEDED FOR JOINT PAIN 4 Active denosumab (PROLIA) 60 MG/ML injection Inject 1 mL (60 mg total) into the skin. Active famotidine (PEPCID) 20 MG tabletIndication s:Oral phase dysphagia,Chroni c cough Take 1 tablet (20 mg total) by mouth 2 (two) times daily. 180 tablet 3 4 Active Active Problems Problem Noted Date Diagnosed Date Age-related osteoporosis wit hout current pathological fracture 04/20/2023 RA (rheumatoid arthritis) ([facility]) 01/13 Chronic neck pain 01/26/2020 Other fatigue 01/26/2020 Encounters Date Type Department Care Team Description 09/04/2024 Telephone [facility] Family [facility] Internal Medicine [id number] [place] [address] Danitza Gutierrez, MANAGER WEALTH MANAGEMENT-BC Other (Insurance ) from Last 3 Months Immunizations Name Administration Dates Next Due Arexvy Respiratory Syncytial Virus (RSV, adjuvanted) 0.5 mL, PF 03/14/2023 Flucelvax 6 Months+ (Prefill ed Syringe) 04/16/2020 Fluzone 6 Months+ Quad (0.5 mL Prefilled Syringe) 03/31/2020 Influenza (Generic) 05/28/2019,04/27/2015 Influenza Adult (Generic) 03/14/2023,,05/04/2021,2019,04/24/2018,05/15/2017,04/24/2016 PFIZER COVID-19 (LI CAP), MRNA, LNP-S, PF, 30 MCG/0.3 ML MACKENZIE-SUCROSE, IM 02/01/2022 PFIZER COVID-19 (ORIGINAL FORMULATION, PURPLE CAP) mRNA, LNP-S, PF, 30 MCG/0.3 ML DOSE 05/04/2021,10/06/2020,09/16/2020 PFIZER COVID-19 BIVALENT (12 +) mRNA, LNP-S, PF, 30 MCG/0.3 ML DOSE 04/11/2022 Pneumococcal (Prevnar 13) 04/27/2015 Shingrix 12/16/2018,09/24/2018 Tdap (Generic) 09/24/2018 Family History Medical History Relation Comments suicide Father Hypertension Mother Stroke Mother Relation Status Comments Father Mother Alive Social History Tobacco Use Types Packs/Day Years Used Date Smoking Tobacco: Former Cigarettes 0.5 20 1 0 - 2009 Passive Smoke Exposure: Past Smokeless Tobacco: Never Tobacco Cessation:Counseling Given: No Alcohol Use Standard Drinks/Week Comments Yes 0 [...] CDT Gender Identity Female 08/15/2021 4:38 AM FLAKING ROLL OPERATOR Sexual Orientation Straight 08/30/2021 7: 32 AM FLAKING ROLL OPERATOR Last Filed Vital Signs Vital Sign Reading Time Taken Comments Blood Pressure 119/78 01/14/2024 9:50 AM CDT Pulse 89 01/14/2024 9:50 AM CDT Temperature 36.3 C (97.3 F) 04/01/2024 9:21 AM CDT Respiratory Rate 16 01/14/2024 9:50 AM CDT Oxygen Saturation 98% 01/14/2024 9:50 AM CDT Inhaled Oxygen Concentration - - Weight 62.6 kg (138 lb) 01/14/2024 9:50 AM CDT Height 166.4 cm (5' 5.5 ) 01/14/2024 9:50 AM CDT Body Mass Index 22.62 01/14/2024 9:50 AM CDT Plan of Treatment Upcoming Encounters Date Type Department Care Team (Late st Contact Info) Description 09/30/2024 9:[address] [facility] [address] [place] [address] Danitza Gutierrez, [facility]- [address], [address] [place] [address] Health Maintenance Due Date Last Done Comments Cervical Cancer Screening Pap Smear (Age 30 to 64) Every 3 Years 1960 Colorectal Cancer Screening Colonoscopy (10 Years) 1960 Cervical Cancer Screening Pap with HPV Testing (Age 30 to 64) Every 5 Years 1990 Cervical Cancer Screening with HPV 1990 Annual Physical 01/19/2022 01/19/2021, 01/13/2020 COVID-19 Vaccine ( season) 2024 04/11/2022, 02/01/2022, 05/04/2021, Additional history exists Mammogram Screening 04/11/2024 04/11/2022, 03/03/2021, 03/03/2021 Influenza Adult (#1) 2024 03/14/2023, 04/11/2022, 05/04/2021, Additional history exists PHQ-2 (Physician John Day) 07/16/2024 01/14/2024 DTaP, Tdap and Td Vaccines (2 - Td or Tdap) 09/24/2028 09/24/2018 Pneumococcal Vaccine: Pediatrics (0 to 5 Years) and At-Risk Patients (6 to 64 Years) Aged Out 04/27/2015 No longer eligible based on patient's age to complete this topic Zoster Vaccines Completed 12/16/2018, 09/24/2018 RSV Immunization or 60+ Years Completed 03/14/2023 Hepatitis C Completed 06/11/2023 Meningococcal B Vaccine Aged Out No l onger eligible based on patient's age to complete this topic Meningococcal Vaccine Aged Out No she gt eligible based on patient's age to complete this topic RSV Immunizations Under 20 Months Aged Out No longer eligible based on patient's age to complete this topic Procedures Procedure Name Priority Date/Time Associated Diagnosis Comments HEPATITIS C ANTIBODY Routine 06/11/2023 11:07 AM FLAKING ROLL OPERATOR Fatigue Senile arthritis Vitamin D deficiency Vitamin B12 deficiency (non anemic) Iron deficiency anemia, unspecified Encounter for medication monitoring Screening examination for poliomyelitis Rheumatic joint disease MAMMOGRAM GENERIC (SCAN ORDER) 04/11/2022 from Last 3 Months or Most Recently Relevant to Health Maintenance Results * HEPATITIS C ANTIBODY (06/11/2023 11:07 AM FLAKING ROLL OPERATOR) HEPATITIS C AB NON-REACTI VE NON-REACTI VE 06/11/2023 4:00 PM FLAKING ROLL OPERATOR [facility] 06/11/2023 11:0 7 AM FLAKING ROLL OPERATOR Lukas Yi MD LABORATORY Final Result Performing Organization Address City/State/[facility] Co de Phone Number [facility] [address] [place] [address], [place] [phone] * MAMMOGRAM GENERIC (04/11/2022) Anatomical Region Laterality Modality Other 04/11/2022 Narrative 04/11/2022 Ordered by an unspecified provider. us Documents Scanned SCANNING Final Result from Last 3 Months or Most Recently Relevant to Health Maintenance Insurance [facility] Care Teams Remote Sensing Specialist Relationship Specialty Start Date End Date Danitza Gutierrez, [facility]- [address], [address] [place] [address] PCP - General Nurse Practitioner Family 04/20/23 [place] [id number] , [facility] [address] [place] [address] ANESTHESIOLOGY 10/03/21
--- OUTSIDE RECORDS SUMMARY | 2024-09-29 09:35 | XMS_ITS | Encounter Summary ---
Author Organization [facility] Address [facility] [place] [address] Care Team Providers Care Complex Manager Name Role Phone Segundo Kennedy MD Unavailable [phone] [facility] Primary Care Provider + Encounter Details Date Type Department Care Team (Late st Contact Info) Description 04/02/2024 Therapy Plan [facility] Family & Internal Medicine [address] [address] Danitza Gutierrez [address] [place] [address] Social History Tobacco Use Types [...] CDT Gender Identity Female 08/15/2021 4:38 AM PACKAGE HANDLER Sexual Orientation Straight 08/30/2021 7: 32 AM PACKAGE HANDLER documented as of this encounter Plan of Treatment Upcoming Encounters Date Type Department Care Team (Late st Contact Info) Description 09/30/2024 9:30 AM CDT Appointment [facility] [address] [place] [address] Danitza Gutierrez FNP-BC [address], [address] [place] [id number] documented as of this encounter Visit Diagnoses Not on filedocumented in this encounter Additional Health Concerns Assessment Noted Time PHQ-9 Depression Total Score: 0 10/04/19 3:55 PM CDT documented as of this encounter Care Teams Complex Manager Relationship Specialty Start Date End Date Danitza Gutierrez FNP-BC [address], [address] [place] [id number] PCP - General Nurse Practitioner Family 04/20/23 [place] [id number] [address], [address] [phone] ANESTHESIOLOGY 10/03/21 documented as of this encounter
--- OUTSIDE RECORDS SUMMARY | 2024-09-29 09:35 | XMS_ITS ---
Author Organization [facility] Address [address] [place] [phone] Care Team Providers Care Game Bird Farmer Name Role Phone Ted Neumann MD Primary Care Provider Segundo Rivas Unavailable [phone] Medications Medication SIG (Take, Route, Frequency, Duration) Notes Start Date End Date Status HYDROcodone-Acetaminophen 10-325 MG 1 tablet Oral every 6 hrs for 30 days 09/25/2024 Active Encounters Encounter Location Date Provider Diagnosis [facility] [address] [place] [phone] 09/25/2024 Segundo Kennedy Plan Of Treatment Medication Medication Name Sig Start Date Stop Date Notes HYDROcodone-Acetaminophen 10-325 MG 1 tablet Oral every 6 hrs for 30 days 09/25/2024 Progress Notes * Yandy CRUMP ADOB:1960 (63 yo F)Acc No.[id number]:09/25/2024 Patient: Yandy DAVIS :1960 A ge:63 Y S ex:Female Phone: Address:[address] [place] [address], [phone] * Refills Refill HYDROcodone-Acetaminophen Tablet, 10-325 MG, Oral, 120 Tablet, 1 tablet, every 6 hrs, 30 days, Refills=0 * true * Date: Generated for Malicki ng/Faaleksg/eTransmitting on: 0 09/29/2024 09:35 AM CDT
--- OUTSIDE RECORDS SUMMARY | 2024-09-29 09:35 | XMS_ITS | Encounter Summary ---
Author Organization [facility] Address [facility] [place] [address] Care Team Providers Care Mid Level Developer Name Role Phone Segundo Kennedy MD Unavailable [phone] Danitza Gutierrez [facility] Primary Care Provider + Encounter Details Date Type Department Care Team (Late st Contact Info) Description 12/26/2023 Repair Report [facility] [id number] [place] [phone] [facility] Provider medication Social History Tobacco Use Types Packs/Day Years Used Date Smoking Tobacco: Former Cigarettes 0.5 20 1 2009 Passive Smoke Exposure: Past Smokeless Tobacco: [...] Date Recorded Patient Health Questionnaire-2 Score 0 10/25/2023 Comments No Sex and Gender Information Value Date Recorded Sex Assigned at Not on file Legal Sex Female 1:05 PM CDT Gender Identity Female 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 Sexual Orientation Straight 08/30/2021 7: 32 AM SHOT FIREMAN documented as of this encounter Plan of Treatment Upcoming Encounters Date Type Department Care Team (Late st Contact Info) Description 09/30/2024 9:30 AM CDT Appointment [facility] [id number] [place], [place] [address], [place] [address] Danitza Gutierrez FNP-BC [address], [address] [place] [address] documented as of this encounter Visit Diagnoses Not on filedocumented in this encounter Additional Health Concerns Assessment Noted Time PHQ-9 Depression Total Score: 0 10/04/19 22 3:55 PM CDT documented as of this encounter Care Teams Mid Level Developer Relationship Specialty Start Date End Date Danitza Gutierrez FNP-BC [address], [address] [place] [address] PCP - General Nurse Practitioner Family 04/20/23 [place] [address] [address], [address] [address] ANESTHESIOLOGY 10/03/21 documented as of this encounter
--- OUTSIDE RECORDS SUMMARY | 2024-09-29 09:35 | XMS_ITS ---
Author Organization [facility] Address [id number] [place] [address] [address] [place] [address] Care Team Providers Care Strip Presser Name Role Phone Ted Neumann MD Primary Care Provider Lorrie Tao PA-C [phone] Allergies No Known Allergies REASON FOR VISIT meds- cristela olivares, c/o neck, shoulders, mid back, low back, hip and joint pain Medications Medication SIG (Take, Route, Frequency, Duration) Notes Start Date End Date Status Amitriptyline HCl 50 MG Oral for 90 Days Active DULoxetine HCl 30 MG TAKE 1 CAPSULE BY MOUTH EVERY MORNING FOR ONE WEEK THEN INCREASE TO 2 CAPSULES BY MOUTH EVERY MORNING Oral for 33 Days Active Amitriptyline HCl 50 MG Oral for 90 Days Active Hydroxychloroquine Sulfate 2 00 MG Oral for 100 Days Active HYDROcodone-Acetaminophen 10-325 MG 1 tablet Oral every 6 hrs for 30 days 07/24/2024 Active Meloxicam 15 MG Oral for 100 Days Active Social History Tobacco Use: Social History Observation Description Date Details (start date - stop date) Former Smoker NA - NA Tobacco Control (Standard) Question Answer Notes Tobacco use: Former smoker How long has it been since you last smoked? 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 and Thoracic spondylosis M47.814 Assessments Encounter Date Diagnosis (ICD Code) Assessment Notes Treatment Notes Treatment Clinical Notes Section Notes 09/04/2024 Rheumatoid arthritis (ICD-10 - M06.9) Prescription for controlled substance sent to supervising physician for renewal 09/04/2024 Pelvic obliquity (ICD-10 - M95.5) 09/04/2024 Leg length discrepancy (ICD-10 - M21.70) 09/04/2024 Other mcc (current) drug therapy (ICD-10 - Z79.899) 09/04/2024 Thoracic spondylosis (ICD-10 - M47.814) Plan Of Treatment Treatment Notes Assessment Notes Rheumatoid arthritis Prescription for co ntrolled substance sent to supervising physician for renewal Next Appt Details Follow Up: 4 Weeks, Reason: Progress Notes * JESUSANITA Yandy ADOB:1960 (63 yo F)Acc No.[id number]:09/04/2024 Patient: Yandy DAVIS Appointment Provider: BRIDGETTE Lopez :1960 A ge:63 Y S ex:Female Supervising Provider:Segundo Kennedy MD Phone: Date:09/04/2024 Address:[address] [place], [place] [id number] Pcp:Ted Neumann MD Subjective: * Chief Complaints: * M eds- cristela illC/o neck, shoulders, mid back, low back, hip and joint pain * HPI: * Established Patient: Established Patient Questionnaire: 1 . Are you currently taking a Blood Thinner Medication? N o 2 . Do you have an allergy to I.V. Contrast or Shellfish? N o 3 . List any changes to medical history. (eg; Falls, Test, Scans, Blood Work, and Hospitalizations) N one 4 . Have you been exposed to anyone with COVID in the last 2 weeks? N o 5 . Have you been exposed to anyone with the FLU in the last 72 hours? N o 6 . What is your Pain Level today? (1-10, Scroll and select one) 3 7 . Where is your pain located? N carolyn,Left Shoulder,Right Shoulder,Top of Back,Low Back,Left Glute,Right Knee 8 . After your last visit, what Percentage of improvement did you experience? 2 0 9 . Are you doing Physical Therapy, Chiropractic, or Massage Therapy? N o 1 0. Are you doing an at home Exercise Program? Y es 1 1. What activities or positions increase your Pain? (Scroll to select one or multiple) S itting,Chores 1 2. What activities or positions decrease your Pain? (Scroll to select one or multiple) L deysi down,Massage Therapy 1 3. How would you describe your Pain? (Scroll to select one or multiple) S tabbing,Aching 1 4. Are you having difficulty sleeping? N o 1 5. When was the last time you had your blood drawn? (Please enter your best estimate) 1 09/08 1 6. When was your last Mammogram? (Please put N/A if you are male, for Females please put the best Estimate or Never. ) A ppt for 09/28/24 1 7. When was your last Colonoscopy? (Please put the best Estimate or Never. ) 1 8. Do you need any refills on your medications today? Y es 1 9. Please list ALL changes to Medications or Allergies? N one 2 0. Are you Diabetic? N o 2 1. Do you suffer from Constipation? N o Yandy Callejas gives consent to virtual telemedicine visit today and verbalizes understanding that insurance will be billed accordingly. The visit was conducted through [facility] which is HIPAA compliant. Time was spent conducting visit, renewing and discussing medications, answering questions, reviewing chart and updating medical history, reviewing current treatment options, future treatments and scheduled procedures, pertinent lab vwork, and discussing follow up. Time spent with patient: 7 minutes. * Pain Management:: Yandy Callejas has an appointment for medication renewal and TPI. She has a history of seronegative rheumatoid arthritis, anterior/posterior cervical fusion C3-7. She has leg length discrepancy short on the right 28 mm that is corrected. She is prone to pelvic obliquity and rotation in the rib cage. She responds well to trigger point injections, craniosacral techniques and RFA procedures. She is very proactive and does HEP/stretching, water therapy and yoga. She is followed closely by recreation adviser.She does well with PT when she can afford it. RFA procedures thoracic spine help as well. She is renewed on hydrocodone prescription. UDS and PDMP are monitored regularly. * ROS: G eneral/Constitutional: Denies Change in appetite, Chills, Fatigue, Fever or Lightheadedness. ENT: Denies Tinnitus or Dysphagia. Ophthalmologic: Denies Blurred vision or change in vision. Neurological: denies gait abnormality, balance difficulty, dizziness, or loss of strength Psychological: denies depressed mood or change in mood Skin: denies skin rash . * Medical History: * Surgical History: * Hospitalization/Major Diagno stic Procedure: n o hospitalization since last visit * Family History: F ather: 85 yrs, arthritissuicide. M other: alive 81 yrs, stroke. * Social History: T obacco Use: T obacco Control (Standard) T obacco use: F ormer smoker H ow long has it been since you last smoked??Greater than 10 years * Established Patient: S moking D o you smoke? N o * Medications: T akingMeloxicam 15 MG Tablet Oral Amitriptyline HCl 50 MG Tablet Oral DULoxetine HCl 30 MG Capsule Delayed Release Particles TAKE 1 CAPSULE BY MOUTH EVERY MORNING FOR ONE WEEK THEN INCREASE TO 2 CAPSULES BY MOUTH EVERY MORNING Oral Amitriptyline HCl 50 MG Tablet Oral Hydroxychloroquine Sulfate 200 MG Tablet Oral HYDROcodone- Acetaminophen 10-325 MG Tablet 1 tablet Oral every 6 hrs Taking Meloxicam 15 MG Tablet Oral Taking Amitriptyline HCl 50 MG Tablet Oral Taking DULoxetine HCl 30 MG Capsule Delayed Release Particles TAKE 1 CAPSULE BY MOUTH EVERY MORNING FOR ONE WEEK THEN INCREASE TO 2 CAPSULES BY MOUTH EVERY MORNING Oral Taking Amitriptyline HCl 50 MG Tablet Oral Taking Hydroxychloroquine Sulfate 200 MG Tablet Oral Taking HYDROcodone- Acetaminophen 10-325 MG Tablet 1 tablet Oral every 6 hrs * Allergies: N .K.D.A.no[Allergies Verified] Objective: * Vitals: H t: 5 ft 5 in, Wt:134lbs, Pain scale:41-10, BMI:22.3Index, Ht-cm: 165.1 cm, Wt- k.78 kg, Body Surface Area: 1.67. * Physical Examination: P atient is alert and oriented x3 in NAD. Questions are answered appropriately. No slurred speech. Respirations are non-labored. Patient sits comfortably during virtual visit today. Assessment: * Assessment: 1. R heumatoid arthritis - M06.9 (Primary) 2 . P elvic obliquity - M95.5? 3. L eg length discrepancy - M21.70 4 . O ther mcc (current) drug therapy - Z79.899 5 . T horacic spondylosis - M47.814 ? Plan: * Treatment: * Procedure Codes: * Follow Up: 4 Weeks * Billing Information: * Visit Code: 48806 Office Visit, Est Pt., Level 2. * Procedure Codes: Review Notes: Segundo Kennedy I 2024-09-23 11:59:12* Electronically co-signed by Segundo Kennedy MD on 09/23/2024 at 11:59 AM CDT Sign off status: Completed true * Appointment Provider: BRIDGETTE Lopez Date: 0 09/04/2024 Generated for Printing/Faxing/eTransmitting on: 0 09/29/2024 09:34 AM CDT History and Physical Notes * HPI (History of Present Illness) Category Sub-Category Detail Notes Category Not es *Pain Management: Yandy Callejas has an appointment for medication renewal and TPI. She has a history of seronegative rheumatoid arthritis, anterior/posterior cervical fusion C3-7. She has leg length discrepancy short on the right 28 mm that is corrected. She is prone to pelvic obliquity and rotation in the rib cage. She responds well to trigger point injections, craniosacral techniques and RFA procedures. She is very proactive and does HEP/stretching, water therapy and yoga. She is followed closely by recreation adviser.She does well with PT when she can afford it. RFA procedures thoracic spine help as well. She is renewed on hydrocodone prescription. UDS and PDMP are monitored regularly. *Established Patient Established Patient Questionnaire: 1. Are you currently taking a Blood Thinner Medication?: No Yandy Callejas gives consent to virtual telemedicine visit today and verbalizes understanding that insurance will be billed accordingly. The visit was conducted through [facility] which is HIPAA compliant. Time was spent conducting visit, renewing and discussing medications, answering questions, reviewing chart and updating medical history, reviewing current treatment options, future treatments and scheduled procedures, pertinent lab vwork, and discussing follow up. Time spent with patient: 7 minutes 2. Do you have an allergy to I.V. Contra st or Shellfish?: No 3. List any changes to medic al history. (eg; Falls, Test, Scans, Blood Work, and Hospitalizations): None 4. Have you been exposed to anyone with COVID in the last 2 weeks?: No 5. Have you been exposed to anyone with the FLU in the last 72 hours?: No 6. What is your Pain Level today? (1-10, Scroll and select one): 3 7. Where is your pain locate d?: Neck,Left Shoulder,Right Shoulder,Top of Back,Low Back,Left Glute,Right Knee 8. After your last visit, wh at Percentage of improvement did you experience?: 20 9. Are you doing Physical Th erapy, Chiropractic, or Massage Therapy?: No 10. Are you doing an at home Exercise Pr ogram?: Yes 11. What activities or posit ions increase your Pain? (Scroll to select one or multiple): Sitting,Chores 12. What activities or posit ions decrease your Pain? (Scroll to select one or multiple): Lying down,Massage Therapy 13. How would you describe y our Pain? (Scroll to select one or multiple): Stabbing,Aching 14. Are you having difficulty sleeping?: No 15. When was the last time y ou had your blood drawn? (Please enter your best estimate): 07/08 16. When was your last Mammo gram? (Please put N/A if you are male, for Females please put the best Estimate or Never. ): Appt for 09/28/24 17. When was your last Colon oscopy? (Please put the best Estimate or Never. ): 11/04 18. Do you need any refills on your medi cations today?: Yes 19. Please list ALL changes to Medicatio ns or Allergies?: None 20. Are you Diabetic?: No 21. Do you suffer from Constipation?: No Physical Examination Category Sub-Category Detail Notes Section Note s Patient is aler t and oriented x3 in NAD. Questions are answered appropriately. No slurred speech. Respirations are non-labored. Patient sits comfortably during virtual visit today.
--- OUTSIDE RECORDS SUMMARY | 2024-09-29 09:35 | XMS_ITS | Patient Health Record ---
Author Organization [facility] Address [address] [place] [address] [address] [place] [address] Care Team Providers Care Capacitor Pack Press Operator Name Role Phone Ted Neumann MD Primary Care Provider Unavaila Megan Mendez Unavailable [phone] Rashel KIM, Lorrie Unavailable Segundo Kennedy Unavailable [phone] Allergies No Known Allergies Results Component Value Reference Range Notes Freenom Profil e Reviewed date:05/08/2024 09:32:08 AM Interpretation: Performing Lab:[facility] (CLIA#: [id number]), [address] [place] [address], Director - Nilda Mustafa Notes/Report: These tests were developed and their performance characteristics determined by [facility]. They have not been cleared or approved by the [place] Food and Drug Administration. Certifying Transmitter Engineer: Alix Santizo (Remote [id number]) Analyzed at [facility] (CLIA#: [id number]) - [address] [place] [address] - Upholsterer Assembly Line: Nilda Watson Duloxetine Ur CMP 138 >=5 ng/mL COMPLIANT: Test result is consistent and expected with prescribed drug. Amitrip Ur CMP >1599 >=10 ng/mL COMPLIANT: Te st result is consistent and expected with prescribed drug. Hydrocodone Ur CMP 978 >=100 ng/mL COMPLIANT : Test result is consistent and expected with prescribed drug. Delta-9 Carboxy-THC CMP 558 >=15 ng/mL PRES ENT: Test result may be due to ingestion or use of a product containing delta-9 THC, a psychoactive cannabinoid. Evaluate for medical use of dronabinol, an approved prescription medication. Additionally, delta-9 THC may be present in other cannabis-derived products or prescription medications (e.g., Epidiolex). Cannabidiol CMP 56 >=15 ng/mL PRESENT: Pattie t result may be due to ingestion of a cannabidiol (CBD) containing product. Evaluate for medical use of cannabidiol (Epidiolex), an approved prescription medication. CBD is a naturally-occurring cannabinoid. BioDetect EXPECTED Test result is consistent with routinely analyzed human urine. 6MAM Ur Ql Cfm <10 >=10 ng/mL NONE DETECTED Amphetamines Ur Ql Cfm <100 >=100 ng/mL NONE DETECTED Benzodiaz Ur Ql Cfm <50 >=50 ng/mL NONE DET ECTED Buprenorphine Ur Ql Cfm <1 >=1 ng/mL NONE DETECTED BZE Ur Ql Cfm <50 >=50 ng/mL NONE DETECTED Fentanyl+Norfentanyl Ur Ql Cfm <5 >=5 ng/mL NONE DETECTED Gabapentin Ur Ql <5 >=5 mcg/mL NONE DETECT ED Carisoprodol+Meprob Ur Ql Scn <200 >=200 ng/mL NONE DETECTED Methadone Ur Ql Cfm <200 >=200 ng/mL NONE DET ECTED Meperidine Ur Ql Cfm <100 >=100 ng/mL NONE DE TECTED Opiates Ur Ql Cfm >=100 >=100 ng/mL POSITIVE Norhydrocodone Ur Cfm-mCnc 978 >=100 ng/mL P OSITIVE Pregabalin(Lyrica) Ur Ql Cfm <5 >=5 mcg/mL NONE DETECTED Tramadol Ur Ql Cfm <100 >=100 ng/mL NONE DETE CTED Creat Ur-mCnc 84.9 20 - 370 mg/dL NORMAL Creatinine and pH are performed for specimen validity and not diagnostic purposes. pH Ur 5.95 4.5 - 9.0 NORMAL Creatinine and pH are performed for specimen validity and not diagnostic purposes. Alcohol Metabolites Ur Ql Cfm <200 >=200 ng/mL NONE DETECTED Ethyl sulfate Ur Cfm-mCnc <200 >=200 ng/mL NO NE DETECTED Tricyclics Ur Ql Cfm >=10 >=10 ng/mL POSITIV E Nortrip Ur Cfm-mCnc 599 >=10 ng/mL POSITIVE Amitrip Ur Cfm-mCnc >1000 >=10 ng/mL POSITIVE SN Reuptake Inhibitors Ur Ql >=5 >=5 ng/mL POSITIVE Duloxetine Ur Cfm-mCnc 138 >=5 ng/mL POSIT SAAD Synthetic Stimulants Ur Ql Cfm <1 >=1 ng/mL NONE DETECTED EGGS INSPECTOR Not Otherwise Specified Ur Ql Cfm <1 >=1 ng/mL NONE DETECTED Synthetic Cannabinoids Ur Ql Cfm <1 >=1 ng/m L NONE DETECTED Hallucinogens/Dissociatives Ur Ql Cfm <1 >=1 ng/mL NONE DETECTED Regional Construction Manager Benzodiazepines Ur Ql Cfm <1 >=1 ng/mL NONE DETECTED Regional Construction Manager Opioids Ur Ql Cfm <1 >=1 ng/mL N ONE DETECTED THC Ur Ql Scn >=20 >=20 ng/mL POSITIVE CarboxyTHC Ur Cfm-mCnc 558 >=15 ng/mL POSIT SAAD Cannabidiol Ur Cfm-mCnc 56 >=15 ng/mL POSI TIVE Reason For Referral No Information Medications Medication SIG (Take, Route, Frequency, Duration) Notes Start Date End Date Status Meloxicam 15 MG Oral for 100 Days Active HYDROcodone-Acetaminophen 10-325 MG 1 tablet Oral every 6 hrs for 30 days 09/25/2024 Active Hydroxychloroquine Sulfate 2 00 MG Oral for 100 Days Active Amitriptyline HCl 50 MG Oral for 90 Days Active DULoxetine HCl 30 MG TAKE 1 CAPSULE BY MOUTH EVERY MORNING FOR ONE WEEK THEN INCREASE TO 2 CAPSULES BY MOUTH EVERY MORNING Oral for 33 Days Active Amitriptyline HCl 50 MG Oral for 90 Days Active Social History Tobacco Use: Social History Observation Description Date Details (start date - stop date) Former Smoker NA - NA Tobacco Control (Standard) Question Answer Notes Tobacco use: Former smoker How long has it been since you last smoked? 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 (Z79.899) Active confirmed Problem Thoracic spondylosis (045685650) Thoracic spondylosis (M47.814) Active confirmed Problem Leg length discrepancy (010976552) Leg length discrepancy (M21.70) Active confirmed Problem Rheumatoid arthritis (66110724) Rheumatoid arthritis (M06.9) Active confirmed Problem Pelvic obliquity (06291714) Pelvic obliquity (M95.5) Active confirmed Vital Signs Heart Rate 90 /min 09/25/2024 Respiratory Rate 18 /min 09/25/2024 Height-cm 165.1 cm 09/25/2024 Blood pressure diastolic 72 mm Hg 09/25/2024 Weight-kg 60.78 kg 09/25/2024 Height 5ft 5in in 09/25/2024 Blood pressure systolic 106 mm Hg 09/25/2024 Weight 134 lbs 09/25/2024 BMI 22.3 kg/m2 09/25/2024 Encounters Encounter Location Date Provider Diagnosis [facility] [address] [facility] [address] [place] [address] 11/01/2023 Lorrie Marstall [facility] [address] [place] [address] [address] [place] [address] 11/22/2023 Lorrie Marstall [facility] [address] [place] [address] [address] [place] [address] 12/12/2023 Lorrie Marstall [facility] [address] [place] [address] [address] [place] [address] 01/31/2024 Lorrie Marstall [facility] [address] [facility] [address] [place] [address] 09/25/2024 Lorrie Marstall Rheumatoid arthritis M06.9 ; Pelvic obliquity M95.5 ; Leg length discrepancy M21.70 ; Other usp (current) drug therapy Z79.899 and Thoracic spondylosis M47.814 [facility] [address] [place] [address] [address] [place] [address] 03/06/2024 Lorrie Marstall Rheumatoid arthritis M06.9 ; Pelvic obliquity M95.5 ; Leg length discrepancy M21.70 and Other group home worker (current) drug therapy Z79.899 Telehealth [facility] [address] [place] [address] [address] [place] [address] 03/27/2024 Lorrie Marstall Rheumatoid arthritis M06.9 ; Pelvic obliquity M95.5 ; Leg length discrepancy M21.70 and Other usp (current) drug therapy Z79.899 [facility] [address] [facility] [address] [place] [address] 05/05/2024 Lorrie Marstall Rheumatoid arthritis M06.9 ; Thoracic spondylosis M47.814 ; Pelvic obliquity M95.5 ; Leg length discrepancy M21.70 and Other group home worker (current) drug therapy Z79.899 [facility] [address] [facility] [address] [place] [address] 07/24/2024 Lorrie Bennetttall Rheumatoid arthritis M06.9 ; Pelvic obliquity M95.5 ; Leg length discrepancy M21.70 ; Other usp (current) drug therapy Z79.899 and Thoracic spondylosis M47.814 Telehealth [facility] [address] [place] [address] [address] [place] [address] 09/04/2024 Lorriealphonse Bennetttall Rheumatoid arthritis M06.9 ; Pelvic obliquity M95.5 ; Leg length discrepancy M21.70 ; Other usp (current) drug therapy Z79.899 and Thoracic spondylosis M47.814 [facility] [address] [facility] [address] [place] [address] 03/27/2024 Segundo Kennedy [facility] [address] [place] [address] [address] [place] [address] 05/05/2024 Megan Kennedy [facility] [address] [place] [address] [address] [place] [address] 07/24/2024 Megan Kennedy [facility] [address] [place] [address] [address] [place] [address] 09/04/2024 Segundo Kennedy [facility] [address] [place] [address] [address] [place] [address] 09/25/2024 Segundo Kennedy Assessments Encounter Date Diagnosis (ICD Code) Assessment Notes Treatment Notes Treatment Clinical Notes Section Notes 03/06/2024 Rheumatoid arthritis (ICD-10 - M06.9) opioid rx sent to supervising physician for renewal 03/06/2024 Pelvic obliquity (ICD-10 - M95.5) 03/27/2024 Rheumatoid arthritis (ICD-10 - M06.9) hydrocodone rx sent to supervising physician for renewal 03/27/2024 Pelvic obliquity (ICD-10 - M95.5) 05/05/2024 Thoracic spondylosis (ICD-10 - M47.814) 05/05/2024 Rheumatoid arthritis (ICD-10 - M06.9) 07/24/2024 Rheumatoid arthritis (ICD-10 - M06.9) Prescription for controlled substance sent to supervising physician for renewal 09/04/2024 Rheumatoid arthritis (ICD-10 - M06.9) Prescription for controlled substance sent to supervising physician for renewal 09/25/2024 Rheumatoid arthritis (ICD-10 - M06.9) Prescription for controlled substance sent to supervising physician for renewal 09/25/2024 Pelvic obliquity (ICD-10 - M95.5) 09/04/2024 Pelvic obliquity (ICD-10 - M95.5) 03/27/2024 Leg length discrepancy (ICD-10 - M21.70) 07/24/2024 Pelvic obliquity (ICD-10 - M95.5) 05/05/2024 Pelvic obliquity (ICD-10 - M95.5) 03/06/2024 Leg length discrepancy (ICD-10 - M21.70) 03/06/2024 Other group home worker (current) drug therapy (ICD-10 - Z79.899) 03/27/2024 Other group home worker (current) drug therapy (ICD-10 - Z79.899) 05/05/2024 Leg length discrepancy (ICD-10 - M21.70) 07/24/2024 Leg length discrepancy (ICD-10 - M21.70) 09/04/2024 Leg length discrepancy (ICD-10 - M21.70) 09/25/2024 Leg length discrepancy (ICD-10 - M21.70) 09/25/2024 Other usp (current) drug therapy (ICD-10 - Z79.899) 05/05/2024 Other usp (current) drug therapy (ICD-10 - Z79.899) 07/24/2024 Other group home worker (current) drug therapy (ICD-10 - Z79.899) 09/04/2024 Other group home worker (current) drug therapy (ICD-10 - Z79.899) 09/04/2024 Thoracic spondylosis (ICD-10 - M47.814) 07/24/2024 Thoracic spondylosis (ICD-10 - M47.814) 09/25/2024 Thoracic spondylosis (ICD-10 - M47.814) 09/25/2024 Other Learning About How to Have a Healthy Back material was published 03/06/2024 Other Learning About How to Have a Healthy Back material was published Plan Of Treatment Pending Test Test Name Order Date EtS (Alcohol Metabolite) - Urine 024 QMP Plus D/L - Urine 05/05/2024 Synthetic Stimulants 05/05/2024 Regional Construction Manager Benzodiazepines 05/05/2024 Synthetic Cannabinoids 05/05/2024 Regional Construction Manager Opioids 05/05/2024 Hallucinogens/Dissociatives 05/05/2024 EGGS INSPECTOR Other 05/05/2024 Marijuana - Urine 05/05/2024 PainComp Medication Compliance - Urine 1 [facility] Required Information 05/05/2024 Insurance Providers Payer Name Payer Address Payer Phone Subscriber Number Group Number Insured Name Patient Relationship to Insured Coverage Start Date Coverage End Date [facility] [address] [address] [place] [address] [id number] Yandy Callejas Self - patient is the insured 6 Medical (General) History Medical History History ICD Code Rheumatoid arthritis- seronegative Hospitalization History Reason Date(Month/Year) no hospitalization since last visit
--- OUTSIDE RECORDS SUMMARY | 2024-09-29 09:36 | XMS_ITS ---
Author Organization [facility] Address [address] [place] [address] Care Team Providers Care Joint Finisher Name Role Phone Ted Neumann MD Primary Care Provider Lorrie Tao PA-C Allergies No Known Allergies REASON FOR VISIT TPI, c/o left neck, shoulder, side and ribcage pain Medications Medication SIG (Take, Route, Frequency, Duration) Notes Start Date End Date Status HYDROcodone-Acetaminophen 10-325 MG 1 tablet Oral every 6 hrs for 30 days 07/24/2024 Active Hydroxychloroquine Sulfate 2 00 MG Oral for 100 Days Active Amitriptyline HCl 50 MG Oral for 90 Days Active DULoxetine HCl 30 MG TAKE 1 CAPSULE BY MOUTH EVERY MORNING FOR ONE WEEK THEN INCREASE TO 2 CAPSULES BY MOUTH EVERY MORNING Oral for 33 Days Active Amitriptyline HCl 50 MG Oral for 90 Days Active Meloxicam 15 MG Oral for 100 Days Active Social History Tobacco Use: Social History Observation Description Date Details (start date - stop date) Former Smoker NA - NA Tobacco Control (Standard) Question Answer Notes Tobacco use: Former smoker How long has it been since you last smoked? Grea ter than 10 years Vital Signs Blood pressure systolic 106 mm Hg 09/26/19 25 Blood pressure diastolic 72 mm Hg 025 Heart Rate 90 /min 09/25/2024 Respiratory Rate 18 /min 09/25/2024 Height 5ft 5in in 09/25/2024 Weight 134 lbs 09/25/2024 BMI 22.3 kg/m2 09/25/2024 Height-cm 165.1 cm 09/25/2024 Weight-kg 60.78 kg 09/25/2024 Encounters Encounter Location Date Provider Diagnosis [facility] [address] [place] [address] 09/25/2024 Lorrie Kiser Rheumatoid arthritis M06.9 ; Pelvic obliquity M95.5 ; Leg length discrepancy M21.70 ; Other termite control service representative (current) drug therapy Z79.899 and Thoracic spondylosis M47.814 Assessments Encounter Date Diagnosis (ICD Code) Assessment Notes Treatment Notes Treatment Clinical Notes Section Notes 09/25/2024 Rheumatoid arthritis (ICD-10 - M06.9) Prescription for controlled substance sent to supervising physician for renewal 09/25/2024 Pelvic obliquity (ICD-10 - M95.5) 09/25/2024 Leg length discrepancy (ICD-10 - M21.70) 09/25/2024 Other termite control service representative (current) drug therapy (ICD-10 - Z79.899) 09/25/2024 Thoracic spondylosis (ICD-10 - M47.814) 09/25/2024 Other Learning About How to Have a Healthy Back material was published Plan Of Treatment Treatment Notes Assessment Notes Rheumatoid arthritis Prescription for co ntrolled substance sent to supervising physician for renewal Other Learning About How t o Have a Healthy Back material was published Next Appt Details Follow Up: 4 Weeks, Reason: Progress Notes * Yandy CRUMP ADOB:1960 (63 yo F)Acc No.[id number]:09/25/2024 Patient: Yandy DAVIS Appointment Provider: BRIDGETTE Lopez :1960 A ge:63 Y S ex:Female Date:09/25/2024 Phone: Address:[address] [place], [place] [id number] Pcp:Ted Neumann MD Subjective: * Chief Complaints: * 1 . TPI. 2. C/o left neck, shoulder, side and ribcage pain. * HPI: * Established Patient: Established Patient [...] Where is your pain located? N carolyn,Left Shoulder,Left Arm 8 . After your last visit, what Percentage of improvement did you experience? 3 0 9 . Are you doing Physical Therapy, Chiropractic, or Massage Therapy? N o 1 0. Are you doing an at home Exercise Program? Y es 1 1. What activities or positions increase your Pain? (Scroll to select one or multiple) S itting,Standing,Chores 1 2. What activities or positions decrease your Pain? (Scroll to select one or multiple) L deysi down,Massage Therapy 1 3. How would you describe your Pain? (Scroll to select one or multiple) A jairo,Throbbing 1 4. Are you having difficulty sleeping? N o 1 5. When was the last time you had your blood drawn? (Please enter your best estimate) N ov 2023 1 6. When was your last Mammogram? (Please put N/A if you are male, for Females please put the best Estimate or Never. ) 0 09/29/2024 1 7. When was your last Colonoscopy? (Please put the best Estimate or Never. ) 1 8. Do you need any refills on your medications today? N o 2 0. Are you Diabetic? N o 2 1. Do you suffer from Constipation? N o * Pain Management:: Yandy Crump has an appointment for medication renewal and [...] and yoga. She is followed closely by psychology technician.She does well with PT when she can afford it. RFA procedures thoracic spine help as well. She is scheduling MFR/ massage appointments. She is renewed on hydrocodone prescription. UDS [...] denies skin rash . * Medical History: R heumatoid arthritis- seronegative. * Hospitalization/Major Diagno stic Procedure: n o hospitalization since last visit . * Family History: F ather: 85 yrs, arthritissuicide. M other: alive 81 yrs, stroke. * Social History: T obacco Use: T obacco Control (Standard) T obacco use: F ormer smoker H ow long has it been since you last smoked??Greater than 10 years * Established Patient: S valdez D o you smoke? N o * Medications: T aking Meloxicam 15 MG Tablet Oral , Taking Amitriptyline HCl 50 MG Tablet Oral , Taking DULoxetine HCl 30 MG Capsule Delayed Release Particles TAKE 1 CAPSULE BY MOUTH EVERY MORNING FOR ONE WEEK THEN INCREASE TO 2 CAPSULES BY MOUTH EVERY MORNING Oral , Taking Amitriptyline HCl 50 MG Tablet Oral , Taking Hydroxychloroquine Sulfate 200 MG Tablet Oral , Taking HYDROcodone-Acetaminophen 10-325 MG Tablet 1 tablet Oral every 6 hrs , Medication List reviewed and reconciled with the patient * Allergies: N .K.D.A. Objective: * Vitals: H t: 5ft 5in, Wt:134lbs, BP:106/72mm Hg, Pain scale:41-10, HR:90/min, RR:18/min, BMI:22.3Index, Ht-cm: 165.1 cm, Wt-k.78 kg, Body Surface Area: 1.67. * Physical Examination: P atient is A&OX3 in NAD, speech is appropriate. Gait is non-antalgic and unassisted. Lungs: respirations are non-labored. Musculoskeletal: pelvic obliquity anterior left, left rotation ribs. Patient transfers without difficulty. Assessment: * Assessment: 1. R heumatoid arthritis - M06.9 (Primary) 2 . P elvic obliquity - M95.5? 3. L eg length discrepancy - M21.70 4 . O ther senior care (current) drug therapy - Z79.899 5 . T horacic spondylosis - M47.814 ? Plan: * Treatment: 2. O thers Notes: Learning About How to Have a Healthy Back material was published * Procedures: T running rigger Point Injections After informed consent the patient was positioned . Preparation was with alcohol . The trigger point was located with a 25 gauge 2 inch block needle with a dry needle technique. Negative aspiration for blood was obtained. A positive fasciculation was noted. A solution of lidocaine 0.5% 10 mL was injected without preservative, without epinephrine and without depomedrol. The following trigger points were injected: L oblique and oblique insertion, L ant serratus, lat, post serratus, rhomboid, UT, post scalene . Patient tolerated procedure well. Patient was discharged stable. * Follow Up: 4 Weeks * Billing Information: * Visit Code: 16885 Office Visit, Est Pt., Level 4. * Procedure Codes: * Electronic signature of BRIDGETTE Collins PA-C on 09/29/2024 at 09:35 AM CDT Sign off status: Pending * Appointment Provider: BRIDGETTE Lopez Date: 0 09/25/2024 Generated for Printing/Faxing/eTransmitting on: 0 09/29/2024 09:35 AM CDT History and Physical Notes * HPI (History of Present Illness) Category Sub-Category Detail Notes Category Not es *Pain Management: Yandy Crump has an appointment for medication renewal and [...] and yoga. She is followed closely by psychology technician.She does well with PT when she can afford it. RFA procedures thoracic spine help as well. She is scheduling MFR/ massage appointments. She is renewed on hydrocodone prescription. UDS and PDMP are monitored regularly. *Established Patient Established Patient Questionnaire: 1. Are you currently taking a Blood Thinner Medication?: No 2. Do you have an allergy to [...] one): 3 7. Where is your pain located?: Neck,Lef t Shoulder,Left Arm 8. After your last visit, wh at Percentage of improvement did you experience?: 30 9. Are you doing Physical Therapy, Chiro practic, or Massage Therapy?: No 10. Are you doing an at home Exercise Pr ogram?: Yes 11. What activities or posit ions increase your Pain? (Scroll to select one or multiple): Sitting,Standing,Chores 12. What activities or posit ions decrease your Pain? (Scroll to select one or multiple): Lying down,Massage Therapy 13. How would you describe y our Pain? (Scroll to select one or multiple): Aching,Throbbing 14. Are you having difficulty sleeping?: No 15. When was the last time y ou had your blood drawn? (Please enter your best estimate): May 2024 16. When was your last Mammo gram? (Please put N/A if you are male, for Females please put the best Estimate or Never. ): 09/29/2024 17. When was your last Colon oscopy? (Please put the best Estimate or Never. ): 01/04 18. Do you need any refills on your medi cations today?: No 20. Are you Diabetic?: No 21. Do you suffer from Constipation?: No Physical Examination Category Sub-Category Detail Notes Section Note s Patient is A&OX3 in NAD, speech is appropriate. Gait is non-antalgic and unassisted. Lungs: respirations are non-labored. Musculoskeletal: pelvic obliquity anterior left, left rotation ribs. Patient transfers without difficulty.
--- OUTSIDE RECORDS SUMMARY | 2024-09-29 09:36 | XMS_ITS | Referral Summary ---
Author Organization [facility] Address [address] [address] Care Team Providers Care Patient Support Partner Name Role Phone Unavailable Primary Care Provider Unavailabl e Source Comments [facility],non-owned Affiliates and Associated Physician Practices is amultiple site organization consisting of ambulatory clinics and hospital sitesin [place], [place], [place] and [place]. This disclosure is being madepursuant to the Care Everywhere program and may not contain all information available regarding this patient. Last updated 18.[facility] [employer] Social History Tobacco Use Types Packs/Day Years Used Date Smoking Tobacco: Never Assessed Sex and Gender Information Value Date Recorded Sex Assigned at Not on file Gender Identity Not on file Sexual Orientation Not on file Plan of Treatment Not on file
--- OUTSIDE RECORDS SUMMARY | 2024-09-29 09:36 | XMS_ITS | CONTINUITY OF CARE DOCUMENT ---
Author Name candyashaaleja Address Unknown Organization [facility] Address [address] [place] [address] Phone [phone] Care Team Providers Care Technical Services Manager Name Role Phone Dany BAE, Nerissa Unavailable RODRIGO BAE, NAHUN Dinaa Unavailable PEYTON DICKEY DO Unavailable INSURANCE PROVIDERS Payer name Policy type / Coverage type [place] red constitution party ID [facility] [id number]
--- OUTSIDE RECORDS SUMMARY | 2024-09-29 09:36 | XMS_ITS | Patient Health Summary ---
Author Organization [facility] [employer] Address [address] [address] Care Team Providers Care Vehicle Safety Inspector Name Role Phone Unavailable Primary Care Provider Unavailabl e Note from [facility],non-owned Affiliates and Associated Physician Practices is amultiple site organization consisting of ambulatory clinics and hospital sitesin [place], [place], [place] and [place]. This disclosure is being madepursuant to the Care Everywhere program and may not contain all information available regarding this patient. Last updated 18.[facility] [employer] Social History Tobacco Use Types Packs/Day Years Used Date Smoking Tobacco: Never Assessed Sex and Gender Information Value Date Recorded Sex Assigned at Not on file Gender Identity Not on file Sexual Orientation Not on file Procedures * MRI BREAST BILAT WWO CONTRAST(Performed 09/03/2014) * CREATININE BLOOD - POCT (IP) [facility](Performed 09/03/2014) Results * MRI BREAST BILAT WWO CONTRAST (09/03/2014 3:17 PM [facility]) Anatomical Region Laterality Modality Breast Bilateral Other Addenda Addendum by Yanelis Pickard MD on 09/07/2014 3:00 PM [facility] Addendum: 2 intramammary lymph nodes are noted along the right breast implant as well, in the upper right breast and upper outer right breast. MRI of the breasts with and without contrast COMPARISON: Screening mammograms dated 11/02/2010, 11/29/2011, 05/18/2014 and diagnostic mammogram of the left breast with ultrasound dated 04/24/2013. HISTORY: Mobile left breast lump, mastodynia. 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 TECHNIQUE: Multiplanar multisequence MR imaging of both breasts before and following the administration of intravenous gadolinium contrast. Dynamic phase imaging was performed in the axial plane. Exam processed by and interpreted on a Mobile System 7 dietary server including 3-D volume rendering, subtraction image processing and contrast kinetic analysis. 6.5 mL of Gadavist intravenous contrast. GFR: 60 mL/min. FINDINGS: Degree of postcontrast parenchymal enhancement: Mild. Amount of fibroglandular tissue: Heterogeneous glandular tissue. RIGHT: An intact silicone breast implant is present. No abnormal enhancing mass or non-mass enhancement is identified. Right axillary lymph nodes are not enlarged. LEFT: An intact silicone breast implant is present. No abnormal enhancing mass or non-mass enhancement is identified. In the left upper and left upper inner breast, overlying the left pectoralis major muscle there is a nonenhancing T2 hyperintense area corresponding to the region of extracapsular silicone rupture noted on prior mammogram and ultrasound. An additional area with similar imaging characteristics is noted at the 9:00 to 10:00 position adjacent to the silicone implant, also representing extracapsular silicone. Left axillary lymph nodes are not enlarged. Addendum by Yanelis Pickard MD on 09/07/2014 3:00 PM [facility] Addendum: 2 intramammary lymph nodes are noted along the right breast implant as well, in the upper right breast and upper outer right breast. MRI of the breasts with and without contrast COMPARISON: Screening mammograms dated 11/02/2010, 11/29/2011, 05/18/2014 and diagnostic mammogram of the left breast with ultrasound dated 04/24/2013. HISTORY: Mobile left breast lump, mastodynia. 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 TECHNIQUE: Multiplanar multisequence MR imaging of both breasts before and following the administration of intravenous gadolinium contrast. Dynamic phase imaging was performed in the axial plane. Exam processed by and interpreted on a Mobile [employer] dietary server including 3-D volume rendering, subtraction image processing and contrast kinetic analysis. 6.5 mL of Gadavist intravenous contrast. GFR: 60 mL/min. FINDINGS: Degree of postcontrast parenchymal enhancement: Mild. Amount of fibroglandular tissue: Heterogeneous glandular tissue. RIGHT: An intact silicone breast implant is present. No abnormal enhancing mass or non-mass enhancement is identified. Right axillary lymph nodes are not enlarged. LEFT: An intact silicone breast implant is present. No abnormal enhancing mass or non-mass enhancement is identified. In the left upper and left upper inner breast, overlying the left pectoralis major muscle there is a nonenhancing T2 hyperintense area corresponding to the region of extracapsular silicone rupture noted on prior mammogram and ultrasound. An additional area with similar imaging characteristics is noted at the 9:00 to 10:00 position adjacent to the silicone implant, also representing extracapsular silicone. Left axillary lymph nodes are not enlarged. Impressions 09/07/2014 3:00 PM [facility] IMPRESSION: BI-RADS category 2, benign findings. No evidence of malignancy in either breast. Nonenhancing T2 hyperintense areas in the left upper breast adjacent to the silicone implant represents extracapsular silicone. The patient may resume bilateral screening mammograms in one year. The current silicone breast implants are intact bilaterally. Dictated by Arnoldo Jama MD. (Resident) Dr. MORRO Bills M.D. have personally reviewed and interpreted this examination/study. This report was electronically signed by MORRO PICKARD M.D. on 09/07/2014 2:50 PM . ADDENDUM #1 IMPRESSION: BI-RADS category 2, benign findings. . No evidence of malignancy in either breast. Nonenhancing T2 hyperintense areas in the left upper breast adjacent to the silicone implant represents extracapsular silicone. The patient may resume bilateral screening mammograms in one year. The current silicone breast implants are intact bilaterally. Dictated by Arnoldo Jama MD. (Resident) Dr. MORRO Bills M.D. have personally reviewed and interpreted this examination/study. This report was electronically signed by MORRO PICKARD M.D. on 09/07/2014 3:00 PM . Narrative 09/07/2014 3:00 PM [facility] ORIGINAL REPORT MRI of the breasts with and without contrast COMPARISON: Screening mammograms dated 11/02/2010, 11/29/2011, 05/18/2014 and diagnostic mammogram of the left breast with ultrasound dated 04/24/2013. HISTORY: Mobile left breast lump, mastodynia. 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 TECHNIQUE: Multiplanar multisequence MR imaging of both breasts before and following the administration of intravenous gadolinium contrast. Dynamic phase imaging was performed in the axial plane. Exam processed by and interpreted on a Mobile System 7 dietary server including 3-D volume rendering, subtraction image processing and contrast kinetic analysis. 6.5 mL of Gadavist intravenous contrast. GFR: 60 mL/min. FINDINGS: Degree of postcontrast parenchymal enhancement: Mild. Amount of fibroglandular tissue: Heterogeneous glandular tissue. RIGHT: An intact silicone breast implant is present. No abnormal enhancing mass or non- mass enhancement is identified. Right axillary lymph nodes are not enlarged. LEFT: An intact silicone breast implant is present. No abnormal enhancing mass or non- mass enhancement is identified. In the left upper and left upper inner breast, overlying the left pectoralis major muscle there is a nonenhancing T2 hyperintense area corresponding to the region of extracapsular silicone rupture noted on prior mammogram and ultrasound. An additional area with similar imaging characteristics is noted at the 9:00 to 10:00 position adjacent to the silicone implant, also representing extracapsular silicone. Left axillary lymph nodes are not enlarged. Procedure Note Yanelis Pickard MD - 01/05/2020 ORIGINAL REPORT MRI of the breasts with and without contrast COMPARISON: Screening mammograms dated 11/02/2010, 11/29/2011, 05/18/2014 anddiagnostic mammogram of the left breast with ultrasound dated1. HISTORY: Mobile left breast lump, mastodynia. History of leftextracapsular silicone rupture with replaced silicone implantreplacement. TECHNIQUE: Multiplanar multisequence MR imaging of both breasts before and followingthe administration of intravenous gadolinium contrast. Dynamic phaseimaging was performed in the axial plane. Exam processed by andinterpreted on a Mobile System 7 dietary server including 3-D volume rendering, subtraction image processing and contrast kineticanalysis. 6.5 mL of Gadavist intravenous contrast. GFR: 60 mL/min. FINDINGS: Degree of postcontrast parenchymal enhancement: Mild. Amount of fibroglandular tissue: Heterogeneous glandular tissue. RIGHT: An intact silicone breast implant is present. No abnormal enhancing massor non- mass enhancement is identified. Right axillary lymph nodes are notenlarged. LEFT: An intact silicone breast implant is present. No abnormal enhancing massor non- mass enhancement is identified. In the left upper and left upperinner breast, overlying the left pectoralis major muscle there is anonenhancing T2 hyperintense area corresponding to the region of extracapsular silicone rupture noted onprior mammogram and ultrasound. An additional area with similar imagingcharacteristics is noted at the 9:00 to 10:00 position adjacent to thesilicone implant, also representing extracapsular silicone. Left axillary lymph nodes are not enlarged. IMPRESSION IMPRESSION: BI-RADS category 2, benign findings. No evidence of malignancy in either breast. Nonenhancing T2 hyperintenseareas in the left upper breast adjacent to the silicone implant representsextracapsular silicone. The patient may resume bilateral screeningmammograms in one year. The current silicone breast implants are intact bilaterally. Dictated by Arnoldo Jama MD. (Resident) Dr. MORRO Bills M.D. have personally reviewed and interpreted thisexamination/study. This report was electronically signed by MORRO PICKARD M.D. on09/07/2014 2:50 PM . ADDENDUM #1 IMPRESSION: BI-RADS category 2, benign findings. . No evidence of malignancy in either breast. Nonenhancing T2 hyperintenseareas in the left upper breast adjacent to the silicone implant representsextracapsular silicone. The patient may resume bilateral screeningmammograms in one year. The current silicone breast implants are intact bilaterally. Dictated by Arnoldo Jama MD. (Resident) Dr. MORRO Bills M.D. have personally reviewed and interpreted thisexamination/study. This report was electronically signed by MORRO PICKARD M.D. on09/07/2014 3:00 PM . Historical Provider MR ORDERABLES * CREATININE BLOOD - POCT () [facility] (09/03/2014) Creatinine POCT 0.93 0.3 - 1.3 mg/dL [facility] eGFR POCT 60 60 ml/min [facility] 09/03/2014 Historical Provider MD LAB - POINT OF CA RE ORDERABLES [facility]
== END 2024-09-29 08:53 | disposition home or self-care (01) ==
LOC: ANHIMG 08:56
PROVIDERS: PCP Nurse Practitioner Family; Visit Provider Nurse Practitioner Family
DX: Z12.31 Encounter for screening mammogram for malignant neoplasm of breast (principal)
CPT/HCPCS: 77063; 77067